=== PATIENT | female | born 1950 | race Two or more races ===

== ENCOUNTER → 2019-06-12 | Outpatient (CLI) | payer OTHER ==
[~2019-06-12] MED LIST: AMBIEN; BENTY; CELEXA; FISH; LISINO; PANTPAK; VIT B; WATER; ZOCOR; ZOLOFT
[2019-06-12 10:17] LABS: Urine Bacteria NONE SEEN /hpf (None Seen); Urine Blood Negative /uL (Negative); Urine Mucus FEW (None Seen); Urine Specific Gravity 1.026 (1.001-1.035); Urine WBC 2 /hpf (0 - 5)
[2019-06-12 10:19] LABS: Basophils # (auto) 0 10 ^3/uL (0-0.2); Basophils % (auto) 0.4 % (0.0-2.0); Eosinophils # (auto) 0.1 10 ^3/uL (0-0.8); Eosinophils % (auto) 2.7 % (0.0-7.0); Hematocrit 43.3 % (36.0-46.0); Hemoglobin 14.4 g/dL (12.2-16.2); Lymphocytes # (auto) 1.8 10 ^3/uL (0.4-5.4); Lymphocytes % (auto) 32.4 % (10.0-50.0); Mean Corpuscular Hemoglobin 29.8 pg (28.0-32.0); Mean Corpuscular Hgb Conc. 33.3 g/dL (32.0-36.0); Mean Corpuscular Volume 89.6 fL (80.0-100.0); Monocytes # (auto) 0.3 10 ^3/uL (0-1.3); Monocytes % (auto) 4.9 % (0.0-12.0); Neutrophils # (auto) 3.2 10 ^3/uL (1.6-8.6); Neutrophils % (auto) 59.6 % (37.0-80.0); Nucleated Red Blood Cells % 0.1 %; Platelet Count (auto) 247 10^3/uL (140-450); Red Blood Cells 4.83 10^6/uL (4.0-5.20); Red Cell Distribution Width 13.8 % (11.8-14.3); White Blood Cell 5.4 10^3/uL (4.4-10.8)
[2019-06-12 11:02] LABS: Albumin 3.8 g/dL (3.4-5.0); Bilirubin, Total 0.6 mg/dL (0.2-1.0); Calcium 8.7 mg/dL (8.5-10.1); Total Protein 7.5 g/dL (6.4-8.2)
== END | disposition home or self-care (01) ==
LOC: LAB 09:51
PROVIDERS: ATTEND Internal Medicine Nephrology
DX: I10 Essential (primary) hypertension (principal)
CPT/HCPCS: 36415; 80053; 80061; 81001; 83036; 84443; 85025

== ENCOUNTER → 2019-06-17 | Outpatient (CLI) | payer OTHER | END | disposition home or self-care (01) | LOC: LAB 08:04 | PROVIDERS: ATTEND Urology | DX: N39.0 Urinary tract infection, site not specified (principal) | CPT/HCPCS: 87086 ==

== ENCOUNTER 2019-10-09 07:48 | Day surgery (SDC) | payer OTHER ==
[2019-10-03 13:06] LABS: Basophils # (auto) 0 10 ^3/uL (0-0.2); Basophils % (auto) 0.6 % (0.0-2.0); Eosinophils # (auto) 0.1 10 ^3/uL (0-0.8); Eosinophils % (auto) 2.3 % (0.0-7.0); Hematocrit 42.2 % (36.0-46.0); Hemoglobin 14.3 g/dL (12.2-16.2); Lymphocytes # (auto) 1.8 10 ^3/uL (0.4-5.4); Lymphocytes % (auto) 30.4 % (10.0-50.0); Mean Corpuscular Hemoglobin 30.3 pg (28.0-32.0); Mean Corpuscular Hgb Conc. 33.8 g/dL (32.0-36.0); Mean Corpuscular Volume 89.6 fL (80.0-100.0); Monocytes # (auto) 0.4 10 ^3/uL (0-1.3); Monocytes % (auto) 6.5 % (0.0-12.0); Neutrophils # (auto) 3.5 10 ^3/uL (1.6-8.6); Neutrophils % (auto) 60.2 % (37.0-80.0); Platelet Count (auto) 227 10^3/uL (140-450); Red Blood Cells 4.71 10^6/uL (4.0-5.20); Red Cell Distribution Width 13.2 % (11.8-14.3); White Blood Cell 5.8 10^3/uL (4.4-10.8)
[2019-10-03 13:19] LABS: INR 0.99 (0.9-1.15); Partial Thromboplastin Time 28.7 sec (23.0-31.2)
[2019-10-03 13:22] LABS: Albumin 4.2 g/dL (3.4-5.0); Calcium 8.9 mg/dL (8.5-10.1); Potassium 3.5 mmol/L (3.5-5.1)
[2019-10-03 13:23] LABS: Urine Bacteria FEW /hpf (None Seen); Urine Blood Negative /uL (Negative); Urine Mucus FEW (None Seen); Urine WBC 8 /hpf (0 - 5)
[2019-10-03 13:26] LABS: BUN/Creatinine Ratio 22.4; Bilirubin, Total 0.8 mg/dL (0.2-1.0); Total Protein 7.8 g/dL (6.4-8.2)
[~2019-10-09] VITALS: Ht 152.4 cm; Wt 86.2 kg
[~2019-10-09 07:48] MED LIST changes: +ALPR0.5T7 PO; -AMBIEN; +ASPI-543 PO; +B-CO-15 PO; -BENTY; -CELEXA; +CITA-77 PO; -FISH; -LISINO; +OMEG1CAP59 PO; -PANTPAK; +SERT-377 PO; +SIMV-8 PO; +TRIA75TA55 PO; -VIT B; -WATER; -ZOCOR; -ZOLOFT
[2019-10-09] MEDS ORDERED: ceFAZolin 1GM VL ONE (08:07)
[2019-10-09] MEDS ORDERED: NEOMYCIN-BACITRACIN-POLYM 15GM TOP OINT TOP ONE (08:07)
[2019-10-09] MEDS ORDERED: LIDOCAINE W/ EPINEPHRINE 1 % INJ 30ML ONE (08:07)
[2019-10-09] MEDS ORDERED: CONJ ESTROGENS 0.625MG/GM VAG CRM 30GM PV ONE (08:07)
[2019-10-09] MEDS ORDERED: CIPROFLOXACIN 400MG/200ML 200 ML IV ONE (08:12)
[2019-10-09] MEDS ORDERED: SUCCINYLCHOLINE CHLORIDE 20 MG/ML 10ML VIAL IV ONE (08:38)
[2019-10-09] MEDS ORDERED: LIDOCAINE 1% (LOCAL ANESTH.) PF 5ml SDV ONE (08:38)
[2019-10-09] MEDS ORDERED: MIDAZOLAM HCL 1MG/1ML-2 ML VIAL ONE (08:43)
[2019-10-09] MEDS ORDERED: ETOMIDATE (2MG/ML) 20ML VIAL IV ONE (08:43)
[2019-10-09] MEDS ORDERED: METOCLOPRAMIDE HCL 5MG/ml INJ 2ml VIAL ONE (08:45)
[2019-10-09] MEDS ORDERED: ROCURONIUM 10MG/ML 10ML VIAL IV ONE (08:45)
[2019-10-09] MEDS ORDERED: fentaNYL CITRATE 100 MCG/2 ML VL ONE (08:57)
[2019-10-09] MEDS ORDERED: HYDROmorphone HCL 2 MG/ML VL IV PRN ×2 (09:15)
[2019-10-09] MEDS ORDERED: NALOXONE HCL 0.4 MG/ML VIAL IV PRN (09:15)
[2019-10-09] MEDS ORDERED: ONDANSETRON HCL 4 MG/2 ML VIAL IV PRN (09:15)
[2019-10-09] MEDS ORDERED: STERILE WATER 10 ML ONE (09:30)
[2019-10-09] MEDS ORDERED: ePHEDrine SULFATE 50 MG/ML AMP ONE (09:30)
[2019-10-09] MEDS ORDERED: KETOROLAC TROMETH 30 MG/ML 1ML VIAL ONE (09:50)
[2019-10-09] MEDS ORDERED: GLYCOPYRROLATE 0.2 MG/ML 1ML VIAL ONE (09:52)
[2019-10-09] MEDS ORDERED: NEOSTIGMINE 1 MG/ML INJ (10mg/10ML VIAL) ONE (09:52)
[2019-10-09 11:06] VITALS: BP 113/66
== END 2019-10-09 11:12 | disposition home or self-care (01) ==
LOC: SUR 07:48
PROVIDERS: ATTEND Urology
DX: N39.46 Mixed incontinence (principal); I10 Essential (primary) hypertension; E66.01 Morbid (severe) obesity due to excess calories; G47.33 Obstructive sleep apnea (adult) (pediatric); F41.9 Anxiety disorder, unspecified; F32.9 Major depressive disorder, single episode, unspecified; M19.90 Unspecified osteoarthritis, unspecified site; H26.9 Unspecified cataract; Z20.828 Contact with and (suspected) exposure to other viral communicable diseases; Z88.0 Allergy status to penicillin; Z88.5 Allergy status to narcotic agent; Z68.34 Body mass index [BMI] 34.0-34.9, adult; Z98.890 Other specified postprocedural states; Z79.899 Other long term (current) drug therapy
CPT/HCPCS: 36415; 57288; 80053; 81001; 85025; 85610; 85730; 88302; C1763; J0330; J0690; J0744; J1885; J2001; J2250; J2765; J3010; U0003

== ENCOUNTER → 2020-01-15 | Outpatient (CLI) | payer OTHER | END | disposition home or self-care (01) | LOC: LAB 10:05 | PROVIDERS: ATTEND Nurse Practitioner Family | DX: U07.1 COVID-19 (principal) | CPT/HCPCS: C9803; U0003 ==

== ENCOUNTER → 2020-06-11 | Outpatient (CLI) | payer OTHER | END | disposition home or self-care (01) | LOC: XYW 07:43 | PROVIDERS: ATTEND Internal Medicine | DX: Z01.810 Encounter for preprocedural cardiovascular examination (principal); I07.1 Rheumatic tricuspid insufficiency | CPT/HCPCS: 93306 ==

== ENCOUNTER 2020-07-16 07:04 | Day surgery (SDC) | payer OTHER ==
[2020-07-14 10:46] LABS: Basophils # (auto) 0 10 ^3/uL (0-0.2); Basophils % (auto) 0.6 % (0.0-2.0); Eosinophils # (auto) 0.3 10 ^3/uL (0-0.8); Hematocrit 40.2 % (36.0-46.0); Hemoglobin 14.1 g/dL (12.2-16.2); Lymphocytes # (auto) 1.9 10 ^3/uL (0.4-5.4); Mean Corpuscular Hgb Conc. 35.1 g/dL (32.0-36.0); Mean Corpuscular Volume 88.3 fL (80.0-100.0); Monocytes # (auto) 0.4 10 ^3/uL (0-1.3); Monocytes % (auto) 5.3 % (0.0-12.0); Neutrophils # (auto) 4.5 10 ^3/uL (1.6-8.6); Neutrophils % (auto) 63.1 % (37.0-80.0); Platelet Count (auto) 214 10^3/uL (140-450); Red Blood Cells 4.55 10^6/uL (4.0-5.20); Red Cell Distribution Width 13.3 % (11.8-14.3); White Blood Cell 7.1 10^3/uL (4.4-10.8)
[2020-07-14 11:11] LABS: Albumin 4.1 g/dL (3.4-5.0); Calcium 8.9 mg/dL (8.5-10.1); INR 0.99 (0.9-1.15); Partial Thromboplastin Time 28.2 sec (23.0-31.2); Potassium 4.1 mmol/L (3.5-5.1)
[2020-07-14 11:15] LABS: BUN/Creatinine Ratio 33.3; Bilirubin, Total 0.7 mg/dL (0.2-1.0); Total Protein 7.7 g/dL (6.4-8.2)
[~2020-07-16] VITALS: Ht 152.4 cm; Wt 89.4 kg
[2020-07-16] MEDS ORDERED: fentaNYL CITRATE 100 MCG/2 ML VL ONE (09:14)
[2020-07-16] MEDS ORDERED: VERAPAMIL 2.5MG/ML INJ 2ML VIAL IV ONE (09:14)
[2020-07-16] MEDS ORDERED: MIDAZOLAM HCL 1MG/1ML-2 ML VIAL ONE (09:14)
[2020-07-16] MEDS ORDERED: SODIUM CHL 0.9% 0 ML ONE (09:14)
[2020-07-16] MEDS ORDERED: HEPARIN SODIUM (PORCINE) 5000 UNITS/ML 1ML VIAL ONE (09:14)
[2020-07-16] MEDS ORDERED: ANGIOMAX 250 MG VIAL IV ONE (09:14)
[2020-07-16] MEDS ORDERED: LIDOCAINE 2%HCL (LOCAL ANESTH.) INJ 20ML MDV ONE (09:25)
[2020-07-16] MEDS ORDERED: IODIXANOL 320MG/ML 100ML BTL IV ONE (09:25)
== END 2020-07-16 12:55 | disposition home or self-care (01) ==
LOC: CATH 07:04
PROVIDERS: ATTEND Internal Medicine
DX: I25.10 Atherosclerotic heart disease of native coronary artery without angina pectoris (principal); I10 Essential (primary) hypertension; E78.5 Hyperlipidemia, unspecified; F32.9 Major depressive disorder, single episode, unspecified; F41.9 Anxiety disorder, unspecified; Z20.822 Contact with and (suspected) exposure to COVID-19; Z98.890 Other specified postprocedural states; Z79.899 Other long term (current) drug therapy; Z87.891 Personal history of nicotine dependence; Z79.82 Long term (current) use of aspirin; Z88.0 Allergy status to penicillin; Z88.5 Allergy status to narcotic agent; Z68.38 Body mass index [BMI] 38.0-38.9, adult; Z90.721 Acquired absence of ovaries, unilateral
CPT/HCPCS: 36415; 80053; 85025; 85610; 85730; 93460; C1751; C1760; C1769; C1894; J1644; J2250; J3010; J7030; Q9967; U0003; 99152; 99153

== ENCOUNTER 2020-08-02 06:21 | Inpatient (IN) | payer OTHER ==
[2020-07-29 15:55] LABS: Basophils # (auto) 0.1 10 ^3/uL (0-0.2); Basophils % (auto) 0.8 % (0.0-2.0); Eosinophils # (auto) 0.2 10 ^3/uL (0-0.8); Eosinophils % (auto) 2.2 % (0.0-7.0); Hematocrit 41.6 % (36.0-46.0); Hemoglobin 14.5 g/dL (12.2-16.2); Lymphocytes # (auto) 2.5 10 ^3/uL (0.4-5.4); Lymphocytes % (auto) 33.3 % (10.0-50.0); Mean Corpuscular Hemoglobin 30.9 pg (28.0-32.0); Mean Corpuscular Hgb Conc. 34.9 g/dL (32.0-36.0); Mean Corpuscular Volume 88.3 fL (80.0-100.0); Monocytes # (auto) 0.4 10 ^3/uL (0-1.3); Monocytes % (auto) 5.4 % (0.0-12.0); Neutrophils # (auto) 4.4 10 ^3/uL (1.6-8.6); Neutrophils % (auto) 58.3 % (37.0-80.0); Red Blood Cells 4.71 10^6/uL (4.0-5.20); Red Cell Distribution Width 13.4 % (11.8-14.3); White Blood Cell 7.6 10^3/uL (4.4-10.8)
[2020-07-29 16:02] LABS: Urine Bacteria NONE SEEN /hpf (None Seen); Urine Blood Negative /uL (Negative); Urine Specific Gravity 1.004 (1.001-1.035); Urine WBC 1 /hpf (0 - 5)
[2020-07-29 16:33] LABS: Albumin 4.2 g/dL (3.4-5.0); Potassium 3.5 mmol/L (3.5-5.1)
[2020-07-29 16:36] LABS: BUN/Creatinine Ratio 23.1; Bilirubin, Total 0.5 mg/dL (0.2-1.0); Total Protein 7.7 g/dL (6.4-8.2)
[~2020-08-02] VITALS: Ht 152.4 cm; Wt 98.0 kg
[2020-08-02] MEDS ORDERED: TRANEXAMIC ACID 20 ML ONE (06:58)
[2020-08-02] MEDS ORDERED: BUPIVACAINE 0.25% INJ 50ML VIAL ONE (06:58)
[2020-08-02] MEDS ORDERED: VANCOMYCIN HCL 1000 MG VL ONE (06:59)
[2020-08-02] MEDS ORDERED: KETOROLAC TROMETH 30 MG/ML 1ML VIAL ONE (06:59)
[2020-08-02] MEDS ORDERED: TETRACAINE 1% INJ 2 ML VIAL IJ ONE (07:00)
[2020-08-02] MEDS ORDERED: ROPIVACAINE 0.5% (5MG/ML) 20ML AMPULE IJ ONE (07:00)
[2020-08-02] MEDS ORDERED: fentaNYL CITRATE 100 MCG/2 ML VL ONE (07:08)
[2020-08-02] MEDS ORDERED: MORPHINE SULF PF 2 MG/2 ML SYRG ONE (07:08)
[2020-08-02] MEDS ORDERED: MIDAZOLAM HCL 2MG/2ML 2ml VIAL (1mg/ml) ONE (07:08)
[2020-08-02] MEDS ORDERED: KETAMINE HCL 10 ML ONE (07:08)
[2020-08-02] MEDS ORDERED: PROPOFOL 10 MG/ML 20 ML IV ONE (07:09)
[2020-08-02] MEDS ORDERED: LIDOCAINE 2% (LOCAL ANESTH.) PF 5ml SDV ONE (07:09)
[2020-08-02] MEDS ORDERED: ONDANSETRON HCL 4 MG/2 ML VIAL ONE (07:09)
[2020-08-02] MEDS ORDERED: DexAMETHasone SOD PHOS 10MG/1ML VIAL INJ ONE (07:09)
[2020-08-02] MEDS ORDERED: FAMOTIDINE (10MG/ML) 2ML VL IV ONE (07:14)
[2020-08-02] MEDS ORDERED: ACETAMINOPHEN IV 100 ML IV ONE (07:27)
[2020-08-02] MEDS ORDERED: CELECOXIB 100 MG CAP ONE (07:27)
[2020-08-02] MEDS ORDERED: PREGABALIN CAPSULE 75 MG CAP ONE (07:27)
[2020-08-02] MEDS ORDERED: CELECOXIB 100 MG CAP PO ONE (09:15)
[2020-08-02] MEDS ORDERED: PREGABALIN CAPSULE 75 MG CAP PO ONE (09:15)
[2020-08-02] MEDS ORDERED: ACETAMINOPHEN IV 1000 MG/100ML (10MG/ML) IV ONE (09:15)
[2020-08-02] MEDS ORDERED: HYDROmorphone HCL 2 MG/ML VL IV PRN (10:15)
[2020-08-02] MEDS ORDERED: diphenhdrAMINE HCL 25 MG CAP PO PRN (10:15)
[2020-08-02] MEDS ORDERED: HYDROcodone-ACET 5/325MG TAB PO PRN (10:15)
[2020-08-02] MEDS ORDERED: NITROGLYCERIN 0.4 MG SL TAB SL PRN (10:15)
[2020-08-02] MEDS ORDERED: ALPRAZolam 0.5 MG TAB PO PRN (10:15)
[2020-08-02] MEDS ORDERED: MORPHINE SULFATE INJECTION 2 MG/ML SYRG IV PRN (10:15)
[2020-08-02] MEDS ORDERED: HYDROmorphone HCL 2 MG/ML VL ONE (10:30)
[2020-08-02] MEDS ORDERED: ONDANSETRON HCL 4 MG/2 ML VIAL IV PRN (10:30)
[2020-08-02] MEDS: HYDROmorphone HCL 2 MG/ML VL IV PRN ×6 (10:33→21:17)
[2020-08-02] MEDS ORDERED: AZTREONAM 1GM INJ 1 GM in D5W 5% 50 ML IV SCH (14:00)
[2020-08-02] MEDS: SODIUM CHLOR 0.9% PF (SALINE LOCK) 10ML VIAL/SYR IV SCH ×2 (14:16→21:45)
[2020-08-02 16:00] VITALS: BP 146/72
[2020-08-02] MEDS: LACTATED RINGER'S 1,000 ML IV SCH ×2 (16:00→20:15)
[2020-08-02] MEDS: KETOROLAC TROMETH 30 MG/ML 1ML VIAL IV PRN (16:26)
[2020-08-02 20:00] VITALS: BP 125/73
[2020-08-02] MEDS: VANCOMYCIN 1GM/250ML 250 ML IV SCH (21:45)
[2020-08-02] MEDS: OMEGA PO SCH (21:46)
[2020-08-02] MEDS: FATTY ACIDS PO SCH (21:46)
[2020-08-02] MEDS: DOCUSATE SOD 100 MG CAP PO SCH (21:46)
[2020-08-02 22:00] VITALS: BP 125/73
[2020-08-03] MEDS: KETOROLAC TROMETH 30 MG/ML 1ML VIAL IV PRN ×2 (00:40→09:04)
[2020-08-03 05:00] VITALS: BP 97/60
[2020-08-03] MEDS: SODIUM CHLOR 0.9% PF (SALINE LOCK) 10ML VIAL/SYR IV SCH ×3 (05:05→21:15)
[2020-08-03] MEDS: LACTATED RINGER'S 1,000 ML IV SCH ×2 (05:05→16:15)
[2020-08-03 05:23] LABS: Hematocrit 31.3 % (36.0-46.0); Hemoglobin 11.1 g/dL (12.2-16.2)
[2020-08-03 05:44] LABS: Albumin 3.2 g/dL (3.4-5.0); BUN/Creatinine Ratio 26.1; Bilirubin, Total 0.5 mg/dL (0.2-1.0); Calcium 7.7 mg/dL (8.5-10.1); Total Protein 6.1 g/dL (6.4-8.2)
[2020-08-03] MEDS: HYDROmorphone HCL 2 MG/ML VL IV PRN ×3 (07:06→22:32)
[2020-08-03 09:00] VITALS: BP 91/51
[2020-08-03] MEDS: B-COMPLEX W/ C & FOLIC ACID(NEPHROVITE TAB) PO SCH (09:05)
[2020-08-03] MEDS: DOCUSATE SOD 100 MG CAP PO SCH ×2 (09:06→21:14)
[2020-08-03] MEDS: ATORVASTATIN 20 MG TAB PO SCH (09:06)
[2020-08-03] MEDS: VANCOMYCIN 1GM/250ML 250 ML IV SCH (09:08)
[2020-08-03] MEDS ORDERED: TRIAMTERENE/HCTZ 75/50MG TABLET PO SCH (10:00)
[2020-08-03] MEDS: OMEGA PO SCH ×2 (10:00→21:15)
[2020-08-03] MEDS ORDERED: CITALOPRAM HYDROBR 20 MG TAB PO SCH (10:00)
[2020-08-03] MEDS: SERTRALINE HCL 50 MG TAB PO SCH (10:00)
[2020-08-03] MEDS: FATTY ACIDS PO SCH ×2 (10:00→21:15)
[2020-08-03] MEDS: ACETAMINOPHEN 325 MG TAB PO PRN (11:15)
[2020-08-03] MEDS: ONDANSETRON HCL 4 MG/2 ML VIAL IV PRN ×2 (12:44→19:38)
[2020-08-03 13:00] VITALS: BP 105/59
[2020-08-03 17:00] VITALS: BP 122/64
[2020-08-03] MEDS: HYDROcodone-ACET 10/325MG TAB PO PRN (19:39)
[2020-08-03 20:05] VITALS: BP 142/68
[2020-08-03 22:00] VITALS: BP 142/68
[2020-08-04] MEDS: LACTATED RINGER'S 1,000 ML IV SCH ×3 (01:37→21:22)
[2020-08-04 05:00] VITALS: BP 116/57
[2020-08-04 05:06] LABS: Basophils # (auto) 0 10 ^3/uL (0-0.2); Basophils % (auto) 0.3 % (0.0-2.0); Eosinophils # (auto) 0.1 10 ^3/uL (0-0.8); Eosinophils % (auto) 0.9 % (0.0-7.0); Hematocrit 32.4 % (36.0-46.0); Hemoglobin 11.6 g/dL (12.2-16.2); Lymphocytes # (auto) 0.7 10 ^3/uL (0.4-5.4); Lymphocytes % (auto) 9.1 % (10.0-50.0); Mean Corpuscular Hemoglobin 31.5 pg (28.0-32.0); Mean Corpuscular Hgb Conc. 35.7 g/dL (32.0-36.0); Mean Corpuscular Volume 88.3 fL (80.0-100.0); Monocytes # (auto) 0.4 10 ^3/uL (0-1.3); Monocytes % (auto) 5.6 % (0.0-12.0); Neutrophils # (auto) 6.2 10 ^3/uL (1.6-8.6); Neutrophils % (auto) 84.1 % (37.0-80.0); Red Blood Cells 3.67 10^6/uL (4.0-5.20); Red Cell Distribution Width 13.6 % (11.8-14.3); White Blood Cell 7.4 10^3/uL (4.4-10.8)
[2020-08-04 05:25] LABS: Calcium 7.8 mg/dL (8.5-10.1); Potassium 3.6 mmol/L (3.5-5.1)
[2020-08-04] MEDS: SODIUM CHLOR 0.9% PF (SALINE LOCK) 10ML VIAL/SYR IV SCH ×3 (05:45→21:22)
[2020-08-04] MEDS: HYDROcodone-ACET 10/325MG TAB PO PRN ×2 (08:59→21:18)
[2020-08-04 09:52] VITALS: BP 123/67
[2020-08-04] MEDS: OMEGA PO SCH ×2 (10:00→21:22)
[2020-08-04] MEDS: FATTY ACIDS PO SCH ×2 (10:00→21:22)
[2020-08-04] MEDS ORDERED: PANTOPRAZOLE 40 MG/10 ML VIAL INJ IV ONE (11:00)
[2020-08-04] MEDS ORDERED: PROMETHAZINE HCL 25 MG/ML 1ML IV PRN (11:00)
[2020-08-04] MEDS: SERTRALINE HCL 50 MG TAB PO SCH (11:13)
[2020-08-04] MEDS: ATORVASTATIN 20 MG TAB PO SCH (11:13)
[2020-08-04] MEDS: B-COMPLEX W/ C & FOLIC ACID(NEPHROVITE TAB) PO SCH (11:14)
[2020-08-04] MEDS: ENOXAPARIN SOD 40 MG/0.4 ML SYRINGE SC SCH (11:15)
[2020-08-04] MEDS: DOCUSATE SOD 100 MG CAP PO SCH ×2 (11:15→21:22)
[2020-08-04 13:00] VITALS: BP 102/54
[2020-08-04] MEDS: ACETAMINOPHEN 325 MG TAB PO PRN (16:23)
[2020-08-04 17:03] VITALS: BP 113/66
[2020-08-04 20:05] VITALS: BP 115/59
[2020-08-04 22:00] VITALS: BP 115/59
[2020-08-05 04:54] LABS: Hematocrit 31.1 % (36.0-46.0)
[2020-08-05] MEDS: HYDROcodone-ACET 10/325MG TAB PO PRN ×3 (05:22→22:50)
[2020-08-05] MEDS: SODIUM CHLOR 0.9% PF (SALINE LOCK) 10ML VIAL/SYR IV SCH ×3 (05:25→21:03)
[2020-08-05 09:00] VITALS: BP 109/54
[2020-08-05] MEDS: OMEGA PO SCH ×2 (10:00→21:04)
[2020-08-05] MEDS: FATTY ACIDS PO SCH ×2 (10:00→21:04)
[2020-08-05] MEDS ORDERED: LACTULOSE 20Gm/30ML SOLN PO ONE (10:15)
[2020-08-05] MEDS: PANTOPRAZOLE 40 MG/10 ML VIAL INJ IV SCH (12:04)
[2020-08-05] MEDS: ATORVASTATIN 20 MG TAB PO SCH (12:04)
[2020-08-05] MEDS: DOCUSATE SOD 100 MG CAP PO SCH ×2 (12:05→21:04)
[2020-08-05] MEDS: SERTRALINE HCL 50 MG TAB PO SCH (12:05)
[2020-08-05] MEDS: B-COMPLEX W/ C & FOLIC ACID(NEPHROVITE TAB) PO SCH (12:05)
[2020-08-05] MEDS: ENOXAPARIN SOD 40 MG/0.4 ML SYRINGE SC SCH (12:05)
[2020-08-05 13:00] VITALS: BP 117/56
[2020-08-05 17:00] VITALS: BP 118/68
[2020-08-05 20:00] VITALS: BP 131/69
[2020-08-05] MEDS: LACTULOSE 20Gm/30ML SOLN PO SCH (21:03)
[2020-08-05 22:02] VITALS: BP 131/69
[2020-08-06 05:00] VITALS: BP 146/76
[2020-08-06] MEDS: SODIUM CHLOR 0.9% PF (SALINE LOCK) 10ML VIAL/SYR IV SCH ×2 (05:22→13:56)
[2020-08-06 08:00] VITALS: BP 137/70
[2020-08-06] MEDS: HYDROcodone-ACET 10/325MG TAB PO PRN (08:15)
[2020-08-06] MEDS: PANTOPRAZOLE 40 MG/10 ML VIAL INJ IV SCH (09:30)
[2020-08-06] MEDS: DOCUSATE SOD 100 MG CAP PO SCH (09:31)
[2020-08-06] MEDS: ATORVASTATIN 20 MG TAB PO SCH (09:31)
[2020-08-06] MEDS: SERTRALINE HCL 50 MG TAB PO SCH (09:32)
[2020-08-06] MEDS: B-COMPLEX W/ C & FOLIC ACID(NEPHROVITE TAB) PO SCH (09:33)
[2020-08-06] MEDS: ENOXAPARIN SOD 40 MG/0.4 ML SYRINGE SC SCH (09:33)
[2020-08-06] MEDS: LACTULOSE 20Gm/30ML SOLN PO SCH (09:35)
[2020-08-06] MEDS: FATTY ACIDS PO SCH (09:35)
[2020-08-06] MEDS: OMEGA PO SCH (09:35)
[2020-08-06 11:35] VITALS: BP 96/53
[2020-08-06 12:00] VITALS: BP 152/69
== END 2020-08-06 17:30 | disposition home health service (06) | DRG 467 ==
LOC: SUR 06:21 → TELE 10:04 → TELE-CENTR 13:44
PROVIDERS: ADMIT Orthopaedic Surgery Adult Reconstructive Orthopaedic Surgery; ATTEND Internal Medicine
PROC: 0SPC0JZ Removal of Synthetic Substitute from Right Knee Joint, Open Approach (ICD-10-PCS; 2020-08-02)
PROC: 0SRC0J9 Replacement of Right Knee Joint with Synthetic Substitute, Cemented, Open Approach (ICD-10-PCS; 2020-08-02)
PROC: 3E0T3BZ Introduction of Anesthetic Agent into Peripheral Nerves and Plexi, Percutaneous Approach (ICD-10-PCS; principal; 2020-08-02 07:32)
DX: T84.032A Mechanical loosening of internal right knee prosthetic joint, initial encounter (principal); Z68.41 Body mass index [BMI] 40.0-44.9, adult; Z20.822 Contact with and (suspected) exposure to COVID-19; F32.9 Major depressive disorder, single episode, unspecified; F41.9 Anxiety disorder, unspecified; M19.90 Unspecified osteoarthritis, unspecified site; E66.01 Morbid (severe) obesity due to excess calories; Z96.652 Presence of left artificial knee joint; Y83.8 Other surgical procedures as the cause of abnormal reaction of the patient, or of later complication, without mention of misadventure at the time of the procedure; M65.861 Other synovitis and tenosynovitis, right lower leg; Y79.2 Prosthetic and other implants, materials and accessory orthopedic devices associated with adverse incidents; E78.5 Hyperlipidemia, unspecified; I10 Essential (primary) hypertension; Z88.5 Allergy status to narcotic agent; Z79.899 Other long term (current) drug therapy; Z88.0 Allergy status to penicillin; Z88.6 Allergy status to analgesic agent; Z90.721 Acquired absence of ovaries, unilateral; Y92.89 Other specified places as the place of occurrence of the external cause
CPT/HCPCS: 36415; 73562; 80048; 80053; 81001; 85014; 85018; 85025; 86850; 86900; 86901; 97116; C9113; G0378; J0131; J1100; J1885; J2001; J2250; J2405; J2704; J3490; J7060

== ENCOUNTER 2021-01-31 07:41 | Inpatient (IN) | payer OTHER ==
[2021-01-27 09:25] LABS: Basophils # (auto) 0 10 ^3/uL (0-0.2); Basophils % (auto) 0.7 % (0.0-2.0); Eosinophils # (auto) 0.2 10 ^3/uL (0-0.8); Eosinophils % (auto) 4.5 % (0.0-7.0); Hematocrit 42.7 % (36.0-46.0); Hemoglobin 14.3 g/dL (12.2-16.2); Lymphocytes # (auto) 1.7 10 ^3/uL (0.4-5.4); Lymphocytes % (auto) 32.8 % (10.0-50.0); Mean Corpuscular Hgb Conc. 33.5 g/dL (32.0-36.0); Mean Corpuscular Volume 89.5 fL (80.0-100.0); Monocytes # (auto) 0.3 10 ^3/uL (0-1.3); Monocytes % (auto) 6.2 % (0.0-12.0); Neutrophils # (auto) 2.8 10 ^3/uL (1.6-8.6); Neutrophils % (auto) 55.8 % (37.0-80.0); Nucleated Red Blood Cells % 0.1 %; Red Blood Cells 4.78 10^6/uL (4.0-5.20); Red Cell Distribution Width 13.8 % (11.8-14.3); White Blood Cell 5.1 10^3/uL (4.4-10.8)
[2021-01-27 09:47] LABS: Urine Bacteria NONE SEEN /hpf (None Seen); Urine Blood Negative /uL (Negative); Urine Specific Gravity 1.014 (1.001-1.035); Urine WBC 1 /hpf (0 - 5)
[2021-01-27 09:59] LABS: Albumin 4.3 g/dL (3.4-5.0); Calcium 8.9 mg/dL (8.5-10.1); Potassium 3.9 mmol/L (3.5-5.1)
[2021-01-27 10:02] LABS: BUN/Creatinine Ratio 19.6; Bilirubin, Total 0.7 mg/dL (0.2-1.0); Total Protein 7.6 g/dL (6.4-8.2)
[~2021-01-31] VITALS: Ht 152.4 cm; Wt 93.2 kg
[~2021-01-31 07:41] MED LIST changes: +HYDR12.56 PO; -TRIA75TA55 PO
[2021-01-31] MEDS ORDERED: VANCOMYCIN HCL 1000 MG VL ONE ×2 (07:54→08:32)
[2021-01-31] MEDS ORDERED: BUPIVACAINE W/ EPINEPH 0.5% MPF 30ML VIAL IJ ONE (08:30)
[2021-01-31] MEDS ORDERED: TRANEXAMIC ACID 20 ML ONE (08:30)
[2021-01-31] MEDS ORDERED: KETOROLAC TROMETH 30 MG/ML 1ML VIAL ONE (08:32)
[2021-01-31] MEDS ORDERED: TETRACAINE 1% INJ 2 ML VIAL IJ ONE (08:40)
[2021-01-31] MEDS ORDERED: MEPERIDINE HCL (25 MG/ML) 1ML VIAL ONE (08:50)
[2021-01-31] MEDS ORDERED: fentaNYL CITRATE 100 MCG/2 ML VL ONE (08:50)
[2021-01-31] MEDS ORDERED: MIDAZOLAM HCL 2MG/2ML 2ml VIAL (1mg/ml) ONE ×2 (08:50→08:52)
[2021-01-31] MEDS ORDERED: DexAMETHasone SOD PHOS 10MG/1ML VIAL INJ ONE (08:52)
[2021-01-31] MEDS ORDERED: PROPOFOL 10 MG/ML 20 ML IV ONE (08:52)
[2021-01-31] MEDS ORDERED: ePHEDrine SULFATE 50 MG/ML AMP IV PRN (09:30)
[2021-01-31] MEDS ORDERED: HYDROmorphone HCL 2 MG/ML VL IV PRN ×2 (09:30→11:45)
[2021-01-31] MEDS ORDERED: LABETALOL HCL 5 MG/ML 4ML SYRINGE IV PRN (09:30)
[2021-01-31] MEDS ORDERED: MIDAZOLAM HCL 2MG/2ML 2ml VIAL (1mg/ml) IV PRN (09:30)
[2021-01-31] MEDS ORDERED: ONDANSETRON HCL 4 MG/2 ML VIAL IV PRN ×2 (09:30→11:45)
[2021-01-31] MEDS: LACTATED RINGER'S 1,000 ML IV SCH (11:45)
[2021-01-31] MEDS ORDERED: ALPRAZolam 0.5 MG TAB PO PRN (11:45)
[2021-01-31] MEDS ORDERED: NITROGLYCERIN 0.4 MG SL TAB SL PRN (11:45)
[2021-01-31] MEDS ORDERED: MORPHINE SULFATE INJECTION 2 MG/ML SYRG IV PRN (11:45)
[2021-01-31 12:26] VITALS: BP 107/56
[2021-01-31 13:00] VITALS: BP 107/56
[2021-01-31] MEDS: KETOROLAC TROMETH 30 MG/ML 1ML VIAL IV SCH ×2 (14:23→21:12)
[2021-01-31 17:00] VITALS: BP 108/58
[2021-01-31] MEDS: ACCU-CHEK COMFORT CURVE STRIP VI SCH ×2 (17:43→21:09)
[2021-01-31] MEDS: OXYCODONE W/ ACETAMINOPHEN 5/325MG TABLET PO PRN (19:56)
[2021-01-31 20:00] VITALS: BP 118/59
[2021-01-31] MEDS: DOCUSATE SOD 100 MG CAP PO SCH (21:04)
[2021-01-31] MEDS: FATTY ACIDS PO SCH (21:04)
[2021-01-31] MEDS: ATORVASTATIN 20 MG TAB PO SCH (21:04)
[2021-01-31] MEDS: OMEGA PO SCH (21:04)
[2021-01-31] MEDS: VANCOMYCIN 1GM/250ML 250 ML IV SCH (22:32)
[2021-02-01 04:19] VITALS: BP 116/63
[2021-02-01] MEDS: OXYCODONE W/ ACETAMINOPHEN 5/325MG TABLET PO PRN ×4 (04:23→20:01)
[2021-02-01] MEDS: KETOROLAC TROMETH 30 MG/ML 1ML VIAL IV SCH (05:45)
[2021-02-01] MEDS: ACCU-CHEK COMFORT CURVE STRIP VI SCH ×2 (05:46→11:41)
[2021-02-01 07:45] LABS: Basophils # (auto) 0 10 ^3/uL (0-0.2); Basophils % (auto) 0.1 % (0.0-2.0); Eosinophils # (auto) 0 10 ^3/uL (0-0.8); Eosinophils % (auto) 0.2 % (0.0-7.0); Hematocrit 33.8 % (36.0-46.0); Hemoglobin 11.7 g/dL (12.2-16.2); Lymphocytes # (auto) 0.9 10 ^3/uL (0.4-5.4); Lymphocytes % (auto) 8.9 % (10.0-50.0); Mean Corpuscular Hgb Conc. 34.8 g/dL (32.0-36.0); Mean Corpuscular Volume 89.1 fL (80.0-100.0); Monocytes # (auto) 0.4 10 ^3/uL (0-1.3); Neutrophils # (auto) 9.2 10 ^3/uL (1.6-8.6); Neutrophils % (auto) 86.8 % (37.0-80.0); Red Blood Cells 3.79 10^6/uL (4.0-5.20); Red Cell Distribution Width 13.8 % (11.8-14.3); White Blood Cell 10.6 10^3/uL (4.4-10.8)
[2021-02-01] MEDS: LACTATED RINGER'S 1,000 ML IV SCH ×3 (07:45→18:04)
[2021-02-01 08:00] VITALS: BP 96/50
[2021-02-01 08:02] LABS: Potassium 3.6 mmol/L (3.5-5.1)
[2021-02-01 08:09] LABS: Albumin 3.4 g/dL (3.4-5.0); BUN/Creatinine Ratio 26.2; Bilirubin, Total 0.5 mg/dL (0.2-1.0); Calcium 8.5 mg/dL (8.5-10.1); Total Protein 6.1 g/dL (6.4-8.2)
[2021-02-01 08:15] VITALS: BP 96/50
[2021-02-01] MEDS: DOCUSATE SOD 100 MG CAP PO SCH ×2 (09:20→20:00)
[2021-02-01] MEDS: SERTRALINE HCL 50 MG TAB PO SCH (09:21)
[2021-02-01] MEDS: ENOXAPARIN SOD 40 MG/0.4 ML SYRINGE SC SCH (09:21)
[2021-02-01] MEDS: VANCOMYCIN 1GM/250ML 250 ML IV SCH (09:35)
[2021-02-01] MEDS: FATTY ACIDS PO SCH ×2 (10:00→21:36)
[2021-02-01] MEDS: OMEGA PO SCH ×2 (10:00→21:36)
[2021-02-01] MEDS ORDERED: CITALOPRAM HYDROBR 20 MG TAB PO SCH (10:00)
[2021-02-01] MEDS ORDERED: HCTZ 25 MG TAB PO SCH (10:00)
[2021-02-01] MEDS ORDERED: PANTOPRAZOLE 40 MG/10 ML VIAL INJ IV SCH (10:00)
[2021-02-01] MEDS: B COMPLEX VITAMINS PO SCH (10:00)
[2021-02-01] MEDS ORDERED: HYDROmorphone HCL 2 MG/ML VL IV PRN (12:00)
[2021-02-01 12:05] VITALS: BP 102/49
[2021-02-01 14:10] VITALS: BP 117/58
[2021-02-01] MEDS: ATORVASTATIN 20 MG TAB PO SCH (20:00)
[2021-02-01 22:00] VITALS: BP 117/53
[2021-02-01] MEDS ORDERED: diphenhdrAMINE HCL 25 MG CAP PO ONE (23:00)
[2021-02-02 05:00] VITALS: BP 132/74
[2021-02-02 06:22] LABS: Basophils # (auto) 0 10 ^3/uL (0-0.2); Basophils % (auto) 0.4 % (0.0-2.0); Eosinophils # (auto) 0 10 ^3/uL (0-0.8); Eosinophils % (auto) 0.6 % (0.0-7.0); Hematocrit 36.1 % (36.0-46.0); Hemoglobin 12.2 g/dL (12.2-16.2); Lymphocytes # (auto) 0.8 10 ^3/uL (0.4-5.4); Lymphocytes % (auto) 14.2 % (10.0-50.0); Mean Corpuscular Hemoglobin 30.4 pg (28.0-32.0); Mean Corpuscular Hgb Conc. 33.9 g/dL (32.0-36.0); Mean Corpuscular Volume 89.8 fL (80.0-100.0); Monocytes # (auto) 0.4 10 ^3/uL (0-1.3); Monocytes % (auto) 7.3 % (0.0-12.0); Neutrophils # (auto) 4.4 10 ^3/uL (1.6-8.6); Neutrophils % (auto) 77.5 % (37.0-80.0); Red Blood Cells 4.02 10^6/uL (4.0-5.20); Red Cell Distribution Width 13.8 % (11.8-14.3); White Blood Cell 5.6 10^3/uL (4.4-10.8)
[2021-02-02 08:00] VITALS: BP 124/67
[2021-02-02] MEDS: OXYCODONE W/ ACETAMINOPHEN 5/325MG TABLET PO PRN ×2 (08:45→21:26)
[2021-02-02 09:00] VITALS: BP 124/60
[2021-02-02] MEDS: B COMPLEX VITAMINS PO SCH (10:00)
[2021-02-02] MEDS: OMEGA PO SCH ×2 (10:00→22:00)
[2021-02-02] MEDS: FATTY ACIDS PO SCH ×2 (10:00→22:00)
[2021-02-02] MEDS: LACTATED RINGER'S 1,000 ML IV SCH (10:14)
[2021-02-02] MEDS: PANTOPRAZOLE 40 MG TAB PO SCH (10:15)
[2021-02-02] MEDS: DOCUSATE SOD 100 MG CAP PO SCH ×2 (10:15→21:24)
[2021-02-02] MEDS: ENOXAPARIN SOD 40 MG/0.4 ML SYRINGE SC SCH (10:15)
[2021-02-02] MEDS: SERTRALINE HCL 50 MG TAB PO SCH (10:15)
[2021-02-02 13:00] VITALS: BP 131/61
[2021-02-02] MEDS: ACETAMINOPHEN 325 MG TAB PO PRN (13:33)
[2021-02-02 16:34] VITALS: BP 92/57
[2021-02-02] MEDS: ATORVASTATIN 20 MG TAB PO SCH (21:24)
[2021-02-02 22:00] VITALS: BP 119/50
[2021-02-03 05:15] LABS: Hematocrit 35.3 % (36.0-46.0); Hemoglobin 12.2 g/dL (12.2-16.2)
[2021-02-03 05:18] VITALS: BP 109/54
[2021-02-03] MEDS: ACETAMINOPHEN 325 MG TAB PO PRN (05:52)
[2021-02-03 09:00] VITALS: BP 98/55
[2021-02-03] MEDS: ENOXAPARIN SOD 40 MG/0.4 ML SYRINGE SC SCH (09:21)
[2021-02-03] MEDS: SERTRALINE HCL 50 MG TAB PO SCH (09:21)
[2021-02-03] MEDS: DOCUSATE SOD 100 MG CAP PO SCH (09:21)
[2021-02-03] MEDS: PANTOPRAZOLE 40 MG TAB PO SCH (09:21)
[2021-02-03] MEDS: FATTY ACIDS PO SCH (09:22)
[2021-02-03] MEDS: OMEGA PO SCH (09:22)
[2021-02-03] MEDS: B COMPLEX VITAMINS PO SCH (09:22)
[2021-02-03 10:41] VITALS: BP 98/55
[2021-02-03] MEDS: OXYCODONE W/ ACETAMINOPHEN 5/325MG TABLET PO PRN (11:26)
[2021-02-03 13:26] VITALS: BP 120/56
== END 2021-02-03 15:59 | disposition home health service (06) | DRG 467 ==
LOC: SUR 07:41 → TELE 11:39 → TELE-WESTW 12:17
PROVIDERS: ADMIT Orthopaedic Surgery Adult Reconstructive Orthopaedic Surgery; ATTEND Internal Medicine
PROC: 0SPD0JZ Removal of Synthetic Substitute from Left Knee Joint, Open Approach (ICD-10-PCS; 2021-01-31)
PROC: 0SPD09Z Removal of Liner from Left Knee Joint, Open Approach (ICD-10-PCS; 2021-01-31)
PROC: 0SUU09Z Supplement Left Knee Joint, Femoral Surface with Liner, Open Approach (ICD-10-PCS; 2021-01-31)
PROC: 0QSF0ZZ Reposition Left Patella, Open Approach (ICD-10-PCS; 2021-01-31)
PROC: 0SRD0J9 Replacement of Left Knee Joint with Synthetic Substitute, Cemented, Open Approach (ICD-10-PCS; principal; 2021-01-31 08:47)
DX: T84.033A Mechanical loosening of internal left knee prosthetic joint, initial encounter (principal); Z68.41 Body mass index [BMI] 40.0-44.9, adult; M22.8X9 Other disorders of patella, unspecified knee; M65.9 Synovitis and tenosynovitis, unspecified; Z96.651 Presence of right artificial knee joint; I95.9 Hypotension, unspecified; E66.9 Obesity, unspecified; E78.5 Hyperlipidemia, unspecified; Y83.8 Other surgical procedures as the cause of abnormal reaction of the patient, or of later complication, without mention of misadventure at the time of the procedure; F32.A Depression, unspecified; Z20.822 Contact with and (suspected) exposure to COVID-19; F41.9 Anxiety disorder, unspecified; Z88.0 Allergy status to penicillin; Z88.6 Allergy status to analgesic agent; Y92.89 Other specified places as the place of occurrence of the external cause
CPT/HCPCS: 36415; 73562; 80053; 81001; 82962; 85014; 85018; 85025; 86850; 86900; 86901; 97110; 97116; 97163; 97530; C9113; G0378; J1100; J1885; J2250; J2405; J2704

== ENCOUNTER → 2021-09-19 | Outpatient (CLI) | payer OTHER ==
[~2021-09-19] MED LIST changes: +PERCOT PO
[2021-09-19 10:35] LABS: Basophils # (auto) 0 10 ^3/uL (0-0.2); Basophils % (auto) 0.5 % (0.0-2.0); Eosinophils # (auto) 0.1 10 ^3/uL (0-0.8); Eosinophils % (auto) 2.7 % (0.0-7.0); Hematocrit 42.5 % (36.0-46.0); Hemoglobin 14.1 g/dL (12.2-16.2); Lymphocytes # (auto) 1.2 10 ^3/uL (0.4-5.4); Lymphocytes % (auto) 25.4 % (10.0-50.0); Mean Corpuscular Hemoglobin 30.1 pg (28.0-32.0); Mean Corpuscular Hgb Conc. 33.2 g/dL (32.0-36.0); Mean Corpuscular Volume 90.8 fL (80.0-100.0); Monocytes # (auto) 0.2 10 ^3/uL (0-1.3); Monocytes % (auto) 4.8 % (0.0-12.0); Neutrophils # (auto) 3.3 10 ^3/uL (1.6-8.6); Neutrophils % (auto) 66.6 % (37.0-80.0); Nucleated Red Blood Cells % 0.1 %; Red Blood Cells 4.68 10^6/uL (4.0-5.20); Red Cell Distribution Width 13.9 % (11.8-14.3); White Blood Cell 4.9 10^3/uL (4.4-10.8)
[2021-09-19 11:27] LABS: CRP High Sensitivity 0.09 mg/dL (< 0.3); Calcium 9.2 mg/dL (8.5-10.1)
[2021-09-19 11:39] LABS: BUN/Creatinine Ratio 15.3; Bilirubin, Total 0.5 mg/dL (0.2-1.0); Potassium 4.1 mmol/L (3.5-5.1); Total Protein 7.7 g/dL (6.4-8.2)
== END | disposition home or self-care (01) ==
LOC: LAB 10:08
PROVIDERS: ATTEND Internal Medicine Rheumatology
DX: M05.79 Rheumatoid arthritis with rheumatoid factor of multiple sites without organ or systems involvement (principal); M45.9 Ankylosing spondylitis of unspecified sites in spine
CPT/HCPCS: 36415; 80053; 85025; 85652; 86141; 86200; 86431; 86705; 86812

== ENCOUNTER → 2022-01-20 | Outpatient (CLI) | payer OTHER ==
[2022-01-20 11:52] LABS: Basophils # (auto) 0 10 ^3/uL (0-0.2); Basophils % (auto) 0.4 % (0.0-2.0); Eosinophils # (auto) 0.1 10 ^3/uL (0-0.8); Eosinophils % (auto) 2.4 % (0.0-7.0); Hematocrit 42.6 % (36.0-46.0); Lymphocytes # (auto) 1.6 10 ^3/uL (0.4-5.4); Lymphocytes % (auto) 31.7 % (10.0-50.0); Mean Corpuscular Hemoglobin 29.4 pg (28.0-32.0); Mean Corpuscular Hgb Conc. 32.9 g/dL (32.0-36.0); Mean Corpuscular Volume 89.3 fL (80.0-100.0); Monocytes # (auto) 0.2 10 ^3/uL (0-1.3); Monocytes % (auto) 4.6 % (0.0-12.0); Neutrophils % (auto) 60.9 % (37.0-80.0); Red Blood Cells 4.77 10^6/uL (4.0-5.20); Red Cell Distribution Width 13.3 % (11.8-14.3)
[2022-01-20 11:54] LABS: Urine Bacteria NONE SEEN /hpf (None Seen); Urine Blood Negative /uL (Negative); Urine Hyaline Cast FEW /lpf (0 - 2); Urine Specific Gravity 1.019 (1.001-1.035); Urine WBC 2 /hpf (0 - 5)
[2022-01-20 12:29] LABS: Potassium 4.2 mmol/L (3.5-5.1)
[2022-01-20 12:41] LABS: BUN/Creatinine Ratio 28.3; Bilirubin, Total 0.8 mg/dL (0.2-1.0); Calcium 9.1 mg/dL (8.5-10.1); Total Protein 7.4 g/dL (6.4-8.2)
== END | disposition home or self-care (01) ==
LOC: LAB 08:55
PROVIDERS: ATTEND Student in an Organized Health Care Education/Training Program
DX: I10 Essential (primary) hypertension (principal); E55.9 Vitamin D deficiency, unspecified; R73.9 Hyperglycemia, unspecified
CPT/HCPCS: 36415; 80053; 80061; 81001; 82306; 83036; 84443; 85025

== ENCOUNTER → 2022-04-21 | Outpatient (CLI) | payer OTHER ==
[2022-04-21 13:09] LABS: Basophils # (auto) 0 10 ^3/uL (0-0.2); Basophils % (auto) 0.7 % (0.0-2.0); Eosinophils # (auto) 0.2 10 ^3/uL (0-0.8); Eosinophils % (auto) 3.4 % (0.0-7.0); Hematocrit 41.6 % (36.0-46.0); Hemoglobin 14.2 g/dL (12.2-16.2); Lymphocytes # (auto) 0.7 10 ^3/uL (0.4-5.4); Lymphocytes % (auto) 14.5 % (10.0-50.0); Mean Corpuscular Hemoglobin 31.6 pg (28.0-32.0); Mean Corpuscular Hgb Conc. 34.2 g/dL (32.0-36.0); Mean Corpuscular Volume 92.4 fL (80.0-100.0); Monocytes # (auto) 0.2 10 ^3/uL (0-1.3); Monocytes % (auto) 3.4 % (0.0-12.0); Neutrophils # (auto) 3.9 10 ^3/uL (1.6-8.6)
[2022-04-21 13:24] LABS: Urine Bacteria NONE SEEN /hpf (None Seen); Urine Blood Negative /uL (Negative); Urine Specific Gravity 1.014 (1.001-1.035); Urine WBC 7 /hpf (0 - 5)
[2022-04-21 14:52] LABS: Alanine Aminotransferase 30 U/L (13-56); Alkaline Phosphatase 100 U/L (45-117); Anion Gap 3 (5-15); Aspartate Aminotransferase 15 U/L (15-37); BUN/Creatinine Ratio 32.7; Bilirubin, Total 0.6 mg/dL (0.2-1.0); Blood Urea Nitrogen 17 mg/dL (7-18); Calcium 8.6 mg/dL (8.5-10.1); Carbon Dioxide 28 mmol/L (21-32); Chloride 107 mmol/L (98-107); GFR African American 149 mL/min; GFR Non-African American 124 mL/min; Glucose 101 mg/dL (74-106); Sodium 138 mmol/L (136-145)
[2022-04-21 14:53] LABS: Cholesterol 133 mg/dL (< 200); HDL Cholesterol 76 mg/dL (40-59); LDL Cholesterol 51 mg/dL (< 100); Total Protein 7.5 g/dL (6.4-8.2); Triglycerides 79 mg/dL (< 150)
== END | disposition home or self-care (01) ==
LOC: LAB 12:37
PROVIDERS: ATTEND Student in an Organized Health Care Education/Training Program
DX: E78.5 Hyperlipidemia, unspecified (principal); R73.9 Hyperglycemia, unspecified; R03.0 Elevated blood-pressure reading, without diagnosis of hypertension
CPT/HCPCS: 36415; 80053; 80061; 81001; 83036; 84443; 85025

== ENCOUNTER → 2022-07-27 | Outpatient (CLI) | payer OTHER ==
[~2022-07-27] MED LIST changes: -B-CO-15 PO; +B-COTAB19 PO; -HYDR12.56 PO; +HYDR12.59 PO; -SIMV-8 PO; +SIMV20TA20 PO
[2022-07-27 12:50] LABS: Basophils # (auto) 0 10 ^3/uL (0-0.2); Basophils % (auto) 0.6 % (0.0-2.0); Eosinophils # (auto) 0.2 10 ^3/uL (0-0.8); Eosinophils % (auto) 3.3 % (0.0-7.0); Hematocrit 41.5 % (36.0-46.0); Lymphocytes # (auto) 1.6 10 ^3/uL (0.4-5.4); Mean Corpuscular Hemoglobin 31.3 pg (28.0-32.0); Mean Corpuscular Hgb Conc. 33.8 g/dL (32.0-36.0); Mean Corpuscular Volume 92.6 fL (80.0-100.0); Monocytes # (auto) 0.5 10 ^3/uL (0-1.3); Monocytes % (auto) 6.7 % (0.0-12.0); Neutrophils # (auto) 4.8 10 ^3/uL (1.6-8.6); Neutrophils % (auto) 66.4 % (37.0-80.0); Red Blood Cells 4.48 10^6/uL (4.0-5.20); Red Cell Distribution Width 13.7 % (11.8-14.3); White Blood Cell 7.2 10^3/uL (4.4-10.8)
[2022-07-27 13:24] LABS: Albumin 4.1 g/dL (3.4-5.0); Calcium 8.7 mg/dL (8.5-10.1); Potassium 4.2 mmol/L (3.5-5.1)
[2022-07-27 13:27] LABS: BUN/Creatinine Ratio 28.8 (10.0-20.0); Bilirubin, Total 0.6 mg/dL (0.2-1.0); Total Protein 7.3 g/dL (6.4-8.2)
== END | disposition home or self-care (01) ==
LOC: LAB 12:27
PROVIDERS: ATTEND Internal Medicine Rheumatology
DX: M06.9 Rheumatoid arthritis, unspecified (principal)
CPT/HCPCS: 36415; 80053; 85025; 85652

== ENCOUNTER → 2022-08-21 | Outpatient (CLI) | payer OTHER ==
[2022-08-21 10:00] LABS: Urine Bacteria NONE SEEN /hpf (None Seen); Urine Blood Negative /uL (Negative); Urine Mucus FEW (None Seen); Urine Specific Gravity 1.025 (1.001-1.035); Urine WBC 4 /hpf (0 - 5)
[2022-08-21 10:36] LABS: Potassium 4.9 mmol/L (3.5-5.1)
[2022-08-21 10:55] LABS: BUN/Creatinine Ratio 32.8 (10.0-20.0); Calcium 8.9 mg/dL (8.5-10.1)
== END | disposition home or self-care (01) ==
LOC: LAB 09:26
PROVIDERS: ATTEND Student in an Organized Health Care Education/Training Program
DX: I10 Essential (primary) hypertension (principal); R73.9 Hyperglycemia, unspecified
CPT/HCPCS: 36415; 80048; 81001; 83036

== ENCOUNTER → 2022-11-20 | Outpatient (CLI) | payer OTHER ==
[2022-11-20 09:38] LABS: Basophils # (auto) 0 10 ^3/uL (0-0.2); Basophils % (auto) 0.5 % (0.0-2.0); Eosinophils # (auto) 0.2 10 ^3/uL (0-0.8); Eosinophils % (auto) 3.2 % (0.0-7.0); Hematocrit 41.9 % (36.0-46.0); Lymphocytes # (auto) 1.4 10 ^3/uL (0.4-5.4); Mean Corpuscular Hemoglobin 30.7 pg (28.0-32.0); Mean Corpuscular Hgb Conc. 33.4 g/dL (32.0-36.0); Mean Corpuscular Volume 92.1 fL (80.0-100.0); Monocytes # (auto) 0.3 10 ^3/uL (0-1.3); Neutrophils # (auto) 3.1 10 ^3/uL (1.6-8.6); Neutrophils % (auto) 62.3 % (37.0-80.0); Red Blood Cells 4.54 10^6/uL (4.0-5.20); Red Cell Distribution Width 14.8 % (11.8-14.3)
[2022-11-20 10:15] LABS: Albumin 4.5 g/dL (3.2-4.8); Alkaline Phosphatase 88 U/L (46-116); Anion Gap 8 (5-15); Aspartate Aminotransferase 18 U/L (13-40); BUN/Creatinine Ratio 22.7 (10.0-20.0); Bilirubin, Total 0.6 mg/dL (0.2-1.0); Blood Urea Nitrogen 15 mg/dL (9-23); Calcium 9.2 mg/dL (8.5-10.1); Carbon Dioxide 26 mmol/L (20-30); Chloride 107 mmol/L (98-107); Glucose 104 mg/dL (74-106); Potassium 4.2 mmol/L (3.5-5.1); Sodium 141 mmol/L (136-145)
[2022-11-20 10:16] LABS: Total Protein 7.1 g/dL (5.7-8.2)
[2022-11-20 10:23] LABS: Alanine Aminotransferase 18 U/L (7-40); Erythrocyte Sedimentation Rate 7 mm/hr (0-20)
== END | disposition home or self-care (01) ==
LOC: LAB 09:17
PROVIDERS: ATTEND Internal Medicine Rheumatology
DX: M06.9 Rheumatoid arthritis, unspecified (principal); Z79.899 Other long term (current) drug therapy
CPT/HCPCS: 36415; 80053; 85025; 85652

== ENCOUNTER → 2022-12-19 | Outpatient (CLI) | payer OTHER ==
[2022-12-19 09:12] LABS: Basophils # (auto) 0 10 ^3/uL (0-0.2); Basophils % (auto) 0.5 % (0.0-2.0); Eosinophils # (auto) 0.2 10 ^3/uL (0-0.8); Eosinophils % (auto) 3.3 % (0.0-7.0); Hematocrit 42.6 % (36.0-46.0); Hemoglobin 13.9 g/dL (12.2-16.2); Lymphocytes # (auto) 1.5 10 ^3/uL (0.4-5.4); Lymphocytes % (auto) 26.5 % (10.0-50.0); Mean Corpuscular Hemoglobin 29.9 pg (28.0-32.0); Mean Corpuscular Hgb Conc. 32.7 g/dL (32.0-36.0); Mean Corpuscular Volume 91.6 fL (80.0-100.0); Monocytes # (auto) 0.3 10 ^3/uL (0-1.3); Monocytes % (auto) 5.9 % (0.0-12.0); Neutrophils # (auto) 3.5 10 ^3/uL (1.6-8.6); Neutrophils % (auto) 63.8 % (37.0-80.0); Red Blood Cells 4.65 10^6/uL (4.0-5.20); Red Cell Distribution Width 14.5 % (11.8-14.3); White Blood Cell 5.6 10^3/uL (4.4-10.8)
[2022-12-19 09:17] LABS: Urine Bacteria NONE SEEN /hpf (None Seen); Urine Blood Negative /uL (Negative); Urine Clarity Clear (Clear); Urine Color Colorless (Yellow); Urine Protein, UAD Negative (Negative); Urine Specific Gravity 1.017 (1.001-1.035); Urine Urobilinogen Normal (Negative); Urine WBC 1 /hpf (0 - 5)
[2022-12-19 09:47] LABS: Alanine Aminotransferase 13 U/L (7-40); Albumin 4.7 g/dL (3.2-4.8); Alkaline Phosphatase 95 U/L (46-116); Anion Gap 7 (5-15); Aspartate Aminotransferase 13 U/L (13-40); BUN/Creatinine Ratio 26.2 (10.0-20.0); Bilirubin, Total 0.7 mg/dL (0.2-1.0); Blood Urea Nitrogen 17 mg/dL (9-23); Calcium 9.2 mg/dL (8.5-10.1); Carbon Dioxide 26 mmol/L (20-30); Chloride 106 mmol/L (98-107); Cholesterol 149 mg/dL (< 200); Glucose 106 mg/dL (74-106); HDL Cholesterol 65 mg/dL (40-59); LDL Cholesterol 68 mg/dL (< 100); Potassium 4.1 mmol/L (3.5-5.1); Sodium 139 mmol/L (136-145); Total Protein 6.9 g/dL (5.7-8.2); Triglycerides 97 mg/dL (< 150)
== END | disposition home or self-care (01) ==
LOC: LAB 08:41
PROVIDERS: ATTEND Student in an Organized Health Care Education/Training Program
DX: I10 Essential (primary) hypertension (principal); E78.5 Hyperlipidemia, unspecified; R73.9 Hyperglycemia, unspecified
CPT/HCPCS: 36415; 80053; 80061; 81001; 83036; 85025

== ENCOUNTER → 2023-04-16 | Outpatient (CLI) | payer OTHER ==
[2023-04-16 08:55] LABS: Basophils # (auto) 0 10 ^3/uL (0-0.2); Basophils % (auto) 0.5 % (0.0-2.0); Eosinophils # (auto) 0.2 10 ^3/uL (0-0.8); Eosinophils % (auto) 4.2 % (0.0-7.0); Hematocrit 42.3 % (36.0-46.0); Hemoglobin 14.1 g/dL (12.2-16.2); Lymphocytes # (auto) 1.6 10 ^3/uL (0.4-5.4); Lymphocytes % (auto) 34.1 % (10.0-50.0); Mean Corpuscular Hemoglobin 30.8 pg (28.0-32.0); Mean Corpuscular Hgb Conc. 33.4 g/dL (32.0-36.0); Mean Corpuscular Volume 92.2 fL (80.0-100.0); Monocytes # (auto) 0.3 10 ^3/uL (0-1.3); Monocytes % (auto) 6.8 % (0.0-12.0); Neutrophils # (auto) 2.5 10 ^3/uL (1.6-8.6); Neutrophils % (auto) 54.4 % (37.0-80.0); Red Blood Cells 4.59 10^6/uL (4.0-5.20); Red Cell Distribution Width 13.5 % (11.8-14.3); White Blood Cell 4.7 10^3/uL (4.4-10.8)
[2023-04-16 09:16] LABS: Alanine Aminotransferase 13 U/L (7-40); Albumin 4.5 g/dL (3.2-4.8); Alkaline Phosphatase 99 U/L (46-116); Anion Gap 6 (5-15); Aspartate Aminotransferase 14 U/L (13-40); BUN/Creatinine Ratio 17.2 (10.0-20.0); Blood Urea Nitrogen 11 mg/dL (9-23); Calcium 9.1 mg/dL (8.5-10.1); Carbon Dioxide 27 mmol/L (20-30); Chloride 107 mmol/L (98-107); Glucose 103 mg/dL (74-106); Sodium 140 mmol/L (136-145)
[2023-04-16 09:17] LABS: Bilirubin, Total 0.6 mg/dL (0.2-1.0); Total Protein 6.5 g/dL (5.7-8.2)
[2023-04-16 09:30] LABS: Erythrocyte Sedimentation Rate 7 mm/hr (0-20)
== END | disposition home or self-care (01) ==
LOC: LAB 08:13
PROVIDERS: ATTEND Internal Medicine Rheumatology
DX: M06.9 Rheumatoid arthritis, unspecified (principal)
CPT/HCPCS: 36415; 80053; 85025; 85652

== ENCOUNTER 2023-09-12 09:10 | Emergency (ER) | payer OTHER ==
[~2023-09-12] VITALS: Ht 152.4 cm; Wt 82.2 kg
[2023-09-12 10:48] VITALS: BP 123/57; PULSE 64; RESP 16; TEMP 98.1; O2SAT 96
[2023-09-12] MEDS: ACETAMINOPHEN 325 MG TAB PO ONE (11:18)
== END 2023-09-12 12:04 | disposition home or self-care (01) ==
LOC: ER 09:10
DX: S00.93XA Contusion of unspecified part of head, initial encounter (principal); I10 Essential (primary) hypertension; E78.5 Hyperlipidemia, unspecified; Z88.0 Allergy status to penicillin; Z88.5 Allergy status to narcotic agent; Z79.82 Long term (current) use of aspirin; Z79.899 Other long term (current) drug therapy; W19.XXXA Unspecified fall, initial encounter; Y93.89 Activity, other specified; Y92.89 Other specified places as the place of occurrence of the external cause; Y99.8 Other external cause status
CPT/HCPCS: 70450

== ENCOUNTER → 2023-11-26 | Outpatient (CLI) | payer OTHER ==
[2023-11-26 08:56] LABS: Urine Bacteria None Seen /hpf (None Seen)
[2023-11-26 09:05] LABS: Basophils # (auto) 0 10 ^3/uL (0-0.2); Basophils % (auto) 0.4 % (0.0-2.0); Eosinophils # (auto) 0.3 10 ^3/uL (0-0.8); Eosinophils % (auto) 4.8 % (0.0-7.0); Hematocrit 40.2 % (36.0-46.0); Hemoglobin 13.8 g/dL (12.2-16.2); Lymphocytes # (auto) 1.2 10 ^3/uL (0.4-5.4); Lymphocytes % (auto) 23.4 % (10.0-50.0); Mean Corpuscular Hemoglobin 31.4 pg (28.0-32.0); Mean Corpuscular Hgb Conc. 34.3 g/dL (32.0-36.0); Mean Corpuscular Volume 91.7 fL (80.0-100.0); Monocytes # (auto) 0.4 10 ^3/uL (0-1.3); Monocytes % (auto) 8.2 % (0.0-12.0); Neutrophils # (auto) 3.3 10 ^3/uL (1.6-8.6); Neutrophils % (auto) 63.2 % (37.0-80.0); Platelet Count (auto) 240 10^3/uL (140-450); Red Blood Cells 4.39 10^6/uL (4.0-5.20); Red Cell Distribution Width 14.3 % (11.8-14.3); White Blood Cell 5.2 10^3/uL (4.4-10.8)
[2023-11-26 09:33] LABS: Urine Blood Negative /uL (Negative); Urine Clarity Clear (Clear); Urine Color Yellow (Yellow); Urine Mucus FEW (None Seen); Urine Protein, UAD Negative (Negative); Urine Urobilinogen Normal (Negative); Urine WBC 1 /hpf (0 - 5); Urine pH 6.5 (5.0-9.0)
[2023-11-26 09:39] LABS: Erythrocyte Sedimentation Rate 19 mm/hr (0-20)
[2023-11-26 10:03] LABS: Alanine Aminotransferase 16 U/L (7-40); Albumin 4.6 g/dL (3.2-4.8); Alkaline Phosphatase 105 U/L (46-116); Anion Gap 6 (5-15); Aspartate Aminotransferase 13 U/L (13-40); BUN/Creatinine Ratio 17.6 (10.0-20.0); Blood Urea Nitrogen 12 mg/dL (9-23); Calcium 9.8 mg/dL (8.7-10.4); Carbon Dioxide 28 mmol/L (20-31); Chloride 107 mmol/L (98-107); Glucose 105 mg/dL (74-106); Potassium 4.3 mmol/L (3.5-5.1); Sodium 141 mmol/L (136-145)
[2023-11-26 10:04] LABS: Bilirubin, Total 0.6 mg/dL (0.2-1.0); Total Protein 7.1 g/dL (5.7-8.2)
== END | disposition home or self-care (01) ==
LOC: LAB 08:43
PROVIDERS: ATTEND Student in an Organized Health Care Education/Training Program
DX: I10 Essential (primary) hypertension (principal)
CPT/HCPCS: 36415; 80053; 81001; 83036; 84443; 85025; 85652

== ENCOUNTER → 2024-02-20 | Outpatient (CLI) | payer OTHER ==
[2024-02-20 11:44] LABS: Basophils # (auto) 0 10 ^3/uL (0-0.2); Basophils % (auto) 0.6 % (0.0-2.0); Eosinophils # (auto) 0.1 10 ^3/uL (0-0.8); Eosinophils % (auto) 2.2 % (0.0-7.0); Hematocrit 41.7 % (36.0-46.0); Hemoglobin 14.1 g/dL (12.2-16.2); Lymphocytes # (auto) 1.9 10 ^3/uL (0.4-5.4); Lymphocytes % (auto) 32.5 % (10.0-50.0); Mean Corpuscular Hemoglobin 30.7 pg (28.0-32.0); Mean Corpuscular Hgb Conc. 33.8 g/dL (32.0-36.0); Mean Corpuscular Volume 90.8 fL (80.0-100.0); Monocytes # (auto) 0.4 10 ^3/uL (0-1.3); Monocytes % (auto) 6.4 % (0.0-12.0); Neutrophils # (auto) 3.4 10 ^3/uL (1.6-8.6); Neutrophils % (auto) 58.3 % (37.0-80.0); Platelet Count (auto) 208 10^3/uL (140-450); Red Blood Cells 4.59 10^6/uL (4.0-5.20); Red Cell Distribution Width 13.8 % (11.8-14.3); White Blood Cell 5.8 10^3/uL (4.4-10.8)
[2024-02-20 11:58] LABS: Alanine Aminotransferase 12 U/L (7-40); Albumin 4.6 g/dL (3.2-4.8); Alkaline Phosphatase 112 U/L (46-116); Anion Gap 8 (5-15); Aspartate Aminotransferase 14 U/L (13-40); BUN/Creatinine Ratio 16.2 (10.0-20.0); Blood Urea Nitrogen 11 mg/dL (9-23); CRP High Sensitivity 0.21 mg/dL (<1.0); Calcium 9.6 mg/dL (8.7-10.4); Carbon Dioxide 26 mmol/L (20-31); Chloride 103 mmol/L (98-107); Sodium 137 mmol/L (136-145)
[2024-02-20 11:59] LABS: Bilirubin, Total 0.6 mg/dL (0.2-1.0); Total Protein 7.2 g/dL (5.7-8.2)
[2024-02-20 12:00] LABS: Glucose 110 mg/dL (74-106)
[2024-02-20 12:22] LABS: Erythrocyte Sedimentation Rate 9 mm/hr (0-20)
== END | disposition home or self-care (01) ==
LOC: LAB 11:21
PROVIDERS: ATTEND Internal Medicine Rheumatology
DX: M06.09 Rheumatoid arthritis without rheumatoid factor, multiple sites (principal); M06.4 Inflammatory polyarthropathy; L40.50 Arthropathic psoriasis, unspecified
CPT/HCPCS: 36415; 80053; 85025; 85652; 86141

== ENCOUNTER 2024-05-02 08:48 | Emergency (ER) | payer OTHER ==
[~2024-05-02] VITALS: Ht 154.9 cm; Wt 85.9 kg
--- NOTE | 2024-05-02 09:04 | ECG ---
[facility] Test Date: 2024-05-02 Test Time: 08:59:52 Pat Name: KAYLAN PHPIPS Department: ER Room: Gender: F Pharmacovigilance Specialist: MARGIE : 1950 Requested By: ELLEN WELCH Order Number: [id number] Reading MD: Ronny Aquino Measurements Intervals [place] Rate: 59 P: 35 NH: 186 QRS: -57 QRSD: 100 T: -28 QT: 455 QTc: 451 Interpretive Statements Sinus rhythm Left anterior fascicular block Probable anterior infarct, age indeterminate Electronically Signed On 05-03-2024 17:44:57 PDT by Ronny Aquino Please click the below link to view image of tracing.
--- NOTE | 2024-05-02 09:32 | ED.PDOC ---
Eye-HPI HPI Comments 73Y F with PMHx HTN, HLD, RA, and vertigo presents to ED for chief complaint dizziness x1week with headache and nausea. Pt describes dizziness as "room spinning". Pt states she has not had a headache during previous vertigo episodes. Pt denies sick contact. No other symptoms reported. Chief Complaint: Dizziness Time Seen by MD: 09:20 Primary Care Provider: GLENNA Reviewed Notes: Nurses Notes, Medications, Allergies Allergies: Coded Allergies: Morphine (Verified Allergy, Mild, HIVES, 08/02/20) Penicillins (Verified Allergy, Unknown, HIVES, 08/02/20) Home Meds Active Scripts Oxycodone W/ Acetaminophen (Percocet 5/325MG) 1 Tab Tb, 1 TAB PO DAILY PRN for 30 Days, #30 TAB 0 Refills Prov:KARLEY MACIEL MD 03/02/21 Reported Medications Hydrochlorothiazide (Hydrochlorothiazide) 12.5 Mg Cap, 12.5 MG PO, CAP 01/27/21 [place]-3 Fatty Acids ([place] 3 500 500 mg) 1 Cap Cap, 1 CAP PO BID, CAP 10/03/19 B-Complex Vitamins (Vitamin B Complex) Complex Tab, 1 TAB PO DAILY, TAB 10/03/19 Aspirin (Aspir-Low) 81 Mg Tab, 81 MG PO DAILY for 30 Days, MG 10/03/19 Alprazolam (Alprazolam) 0.5 Mg Tab, 1 TAB PO BID PRN for ANXIETY, #60 TAB 10/03/19 Sertraline HCl (Sertraline Hydrochloride) 100 Mg Tab, 100 MG PO DAILY, TAB 10/03/19 Simvastatin (Simvastatin) 20 Mg Tab, 20 MG PO DAILY for 30 Days 10/03/19 Citalopram Hydrobromide (Citalopram Hydrobromide) 20 Mg Tab, 20 MG PO DAILY for 30 Days, MG 10/03/19 Information Source: Patient Mode of Arrival: Wheelchair Timing: Weeks Duration: Intermittent Prehospital treatment: None Onset: Spontaneous Throat Exposed to: None History of: None Modifying factors: Nothing Associated signs and symptoms: Other Past Medical History PAST MEDICAL HISTORY: High Lipids, HTN Past Medical History (Other): RA, vertigo Surgical History: Denies all surgeries STRAIN TECHNICIAN History: Denies all STRAIN TECHNICIAN Hx Family History Family History: Reviewed,noncontributory to illness, Unknown Social History Smoker: Non-Smoker Alcohol: Denies ETOH Use Drugs: Denies Drug Use Lives In: Home Constitutional: denies: chills, diaphoresis, fatigue, fever, malaise, sweats, weakness, others EENTM: denies: blurred vision, double vision, ear bleeding, ear discharge, ear drainage, ear pain, ear ringing, eye pain, eye redness, hearing loss, mouth pain, mouth swelling, nasal discharge, nose bleeding, nose congestion, nose pain, photophobia, tearing, throat pain, throat swelling, voice changes, others Respiratory: denies: cough, hemoptysis, orthopnea, SOB at rest, shortness of breath, SOB with excertion, stridor, wheezing, others Cardiovascular: denies: chest pain, dizzy spells, diaphoresis, Dyspnea on exertion, edema, irregular heart beat, left arm pain, lightheadedness, palpitations, PND, syncope, others Gastrointestinal: reports: nausea; denies: abdomen distended, abdominal pain, blood streaked bowels, constipated, diarrhea, dysphagia, difficulty swallowing, hematemesis, melena, poor appetite, poor fluid intake, rectal bleeding, rectal pain, vomiting, others Genitourinary: denies: abnormal vagina bleeding, burning, dyspareunia, dysuria, flank pain, frequency, hematuria, incontinence, pain, , vagina discharge, urgency, others Neurological: reports: dizziness, headache; denies: fainting, left sided numbness, left sided weakness, numbness, paresthesia, pre-existing deficit, right sided numbness, right sided weakness, seizure, speech problems, tingling, tremors, weakness, others Musculoskeletal: denies: back pain, gout, joint pain, joint swelling, muscle pain, muscle stiffness, neck pain, others Integumetry: denies: bruises, change in color, change in hair/nails, dryness, laceration, lesions, lumps, rash, wounds, others Allergic/Immunocompromised: denies: Difficulty Healing, Frequent Infections, Hives, Itching, others Hematologic/Lymphatic: denies: anemia, blood clots, easy bleeding, easy bruising, swollen glands, others Endocrine: denies: excessive hunger, excessive sweating, excessive thirst, excessive urination, flushing, intolerance to cold, intolerance to heat, unexplained weight gain, unexplained weight loss, others Psychiatric: denies: anxiety, bipolar disorder, depression, hopeless, panic disorder, schizophrenia, sleepless, suicidal, others All Other Systems: Reviewed and Negative Physical Exam General Appearance: No Apparent Distress, Normal HEENT: Normal ENT Inspection, Pharynx Normal, TMs Normal Neck: Full Range of Motion, Non-Tender, Normal, Normal Inspection Respiratory: Chest Non-Tender, Lungs Clear, No Accessory Muscle Use, No Respira tory Distress, Normal Breath Sounds Cardiovascular: No Edema, No JVD, No Murmur, No Gallop, Normal Peripheral Pulses, Regular Rate/Rhythm Breast Exam: Deferred Gastrointestinal: No Organomegaly, Non Tender, No Pulsatile Mass, Normal Bowel Sounds, Soft Genitalia: Deferred Pelvic: Deferred Rectal: Deferred Extremities: No calf tenderness, Normal capillary refill, Normal inspection, Normal range of motion, Non-tender, No pedal edema Musculoskeletal : Apperance: Normal Neurologic: Alert, x ray technician II-XII nml as Tested, No Motor Deficits, Normal Affect, Normal Mood, No Sensory Deficits, Other (tracking with eyes produces dizziness sensation) Cerebellar Function: Normal Reflexes: Normal Skin: Dry, Normal Color, Warm Lymphatic: No Adenopathy Was a procedure done? Was a procedure done?: No EENT DIFF Eye: N/A Nose: N/A Mouth: N/A Sore Throat: N/A Other Differential Diagnosis central vertigo, BPV, migraines, brain mass, tia, cva, intracranial bleed, arrhythmias, electrolyte disorders, dehydration, hyperglycemia, hypoglycemia, labyrinthitis, liseth's disease X-Ray, Labs, Meds, VS Vital Signs Date Time Temp Pulse Resp B/P (MAP) Pulse Ox O2 Delivery O2 Flow Rate FiO2 05/02/24 09:45 97.7 59 16 111/52 (71) 95 97.7 05/02/24 09:45 59 17 95 Room Air 05/02/24 09:44 98.1 64 18 126/62 (83) 98 98.1 05/02/24 09:44 64 18 98 Room Air* 0 21 05/02/24 08:59 59 05/02/24 08:58 97.9 60 18 123/59 (80) 97 97.9 Lab Test 05/02/24 09:49 3/21/25 08:55 Range/Units White Blood Count 3.9 L 4.4-10.8 10^3/uL Red Blood Count 4.44 4.0-5.20 10^6/uL Hemoglobin 13.7 12.2-16.2 g/dL Hematocrit 40.8 36.0-46.0 % Mean Corpuscular Volume 91.8 80.0-100.0 fL Mean Corpuscular Hemoglobin 30.8 28.0-32.0 pg Mean Corpuscular Hemoglobin Concent 33.6 32.0-36.0 g/dL Red Cell Distribution Width 14.3 11.8-14.3 % Platelet Count 186 140-450 10^3/uL Mean Platelet Volume 8.0 6.9-10.8 fL Neutrophils (%) (Auto) 59.0 37.0-80.0 % Lymphocytes (%) (Auto) 30.8 10.0-50.0 % Monocytes (%) (Auto) 6.2 0.0-12.0 % Eosinophils (%) (Auto) 3.5 0.0-7.0 % Basophils (%) (Auto) 0.5 0.0-2.0 % Neutrophils # (Auto) 2.3 1.6-8.6 10 ^3/uL Lymphocytes # (Auto) 1.2 0.4-5.4 10 ^3/uL Monocytes # (Auto) 0.2 0-1.3 10 ^3/uL Eosinophils # (Auto) 0.1 0-0.8 10 ^3/uL Basophils # (Auto) 0 0-0.2 10 ^3/uL Nucleated Red Blood Cells 0.1 % Sodium Level 141 136-145 mmol/L Potassium Level 4.2 3.5-5.1 mmol/L Chloride Level 108 H 98-107 mmol/L Carbon Dioxide Level 26 20-31 mmol/L Anion Gap 7 5-15 Blood Urea Nitrogen 25 H 9-23 mg/dL Creatinine 0.65 0.550-1.02 mg/dL Glomerular Filtration Rate Calc 93 >90 mL/min BUN/Creatinine Ratio 38.5 H 10.0-20.0 Serum Glucose 106 74-106 mg/dL Calcium Level 9.6 8.7-10.4 mg/dL Troponin I High Sensitivity < 3 L </=34 ng/L POC Glucose 101 70-106 mg/dl Current Medications Medications (Trade) Dose Ordered Sig/Diego Route Start Time Stop Time Status Last Admin Ondansetron HCl (Zofran Po) 4 mg ONCE ONCE PO 05/02/24 09:30 05/02/24 09:31 DC 05/02/24 09:45 Alprazolam (Xanax Tablet) 0.25 mg ONCE ONCE PO 05/02/24 09:30 05/02/24 09:31 DC 05/02/24 09:44 Meclizine HCl (Antivert Tablet) 25 mg ONCE ONCE PO 05/02/24 09:30 05/02/24 09:31 DC 05/02/24 09:44 [place] [address] Ph: [phone] DIAGNOSTIC IMAGING Diagnostic Imaging Report : [id number] Signed PATIENT: KAYLAN PHIPPS MACCT: [id number] UNIT: [id number] : 1950 LOC: ER ROOM / BED: / AGE / SEX: 73 / F ADM STATUS: REG ER SERVICE 2 ORDERING PHYSICIAN: ELLEN WELCH MD PROCEDURE(s): CXRP - CHEST PORTABLE REASON: vertigo ORDER NUMBER(s): [id number], ACCESSION NUMBER(s): [id number] CHEST RADIOGRAPH Indication: vertigo Technique: Single frontal view of the chest was obtained COMPARISON: None FINDINGS: Lines and Tubes: None Lungs: Clear Pleura: No effusion. No pneumothorax. Cardiomediastinal contours: Unremarkable Bones: Unremarkable IMPRESSION: No acute disease. ATED BY: DEL URBINA MD DICTATED DATE/TIME: 05/02/24942 SIGNED BY: DEL URBINA MD SIGNED DATE/TIME: 05/02/24942 CC: [address] [address] Ph: [phone] DIAGNOSTIC IMAGING Diagnostic Imaging Report : [id number] Signed PATIENT: KAYLAN PHIPPS MACCT: [id number] UNIT: [id number] : 1950 LOC: ER ROOM / BED: / AGE / SEX: 73 / F ADM STATUS: REG ER SERVICE 0923 ORDERING PHYSICIAN: ELLEN WELCH MD PROCEDURE(s): HWOCT - HEAD WITHOUT CONTRAST REASON: vertigo, headache ORDER NUMBER(s): [id number], ACCESSION NUMBER(s): [id number] EXAM: CT HEAD WITHOUT CONTRAST INDICATION: vertigo, headache TECHNIQUE: CT of the head without intravenous contrast. Coronal and sagittal reformatted images are submitted. Radiation Dose : 1. Head: CT Dose: CTDI volume is 57 mGy. Dose-length product is 1000.2 mGy*cm The dose indicators for CT are the volume Computed Tomography (CT) Dose Index (CTDIvol) and the Dose Length Product (DLP), and are measured in units of mGy and mGy-cm, respectively. These indicators are not patient dose, but values generated from the CT scanner acquisition factors. The report includes radiation exposure data for exposures received during this examination. All CT scans at this medical facility are performed using dose modulation techniques as appropriate to a performed exam including the following: Automated exposure control was utilized; adjustment of the MA and/or KV according to patient size; and use of iterative reconstruction technique. COMPARISON: CT HEAD WITHOUT CONTRAST on DOS: 09/12/23. FINDINGS: There is no evidence of acute intracranial hemorrhage, extra-axial collection, mass effect, midline shift, herniation or hydrocephalus. There are periventricular and subcortical hypodensities, nonspecific, but likely reflecting sequelae of chronic microvascular ischemic changes. The ventricles, sulci and cisterns are age appropriate. The fletcher-white differentiation is intact. The visualized paranasal sinuses and mastoid air cells are clear. No depressed calvarial fracture. The surrounding soft tissues are unremarkable. IMPRESSION: 1. No evidence of acute intracranial abnormality. ATED BY: JAELYN BHATIA MD DICTATED DATE/TIME: 05/02/24 1000 SIGNED BY: JAELYN BHATIA MD SIGNED DATE/TIME: 05/02/24 1000 CC: Time of 1ST Reevaluation: 09:50 Reevaluation 1ST: Unchanged Time of 2ND Reevaluation: 10:47 Reevaluation 2ND: Resolved Patient Education/Counseling: Diagnosis, Treatment, Prognosis, Need For Follow Up Family Education/Counseling: No Family Present Additional Information Previous visit documents reviewed: [facility] discharge 02/03/2021 and discharge 08/06/2020 The following tests were ordered, and results were reviewed by me: head CT WO contrast, CBC, BMP, Troponin, CXR Additional Information was gathered from interviewing the following independent historians: None I reviewed and agreed with the following test results read by other providers: Head CT WO contrast, CXR I discussed treatment and results with medical personnel and: Patient pt's symptoms resolved with medications and head ct and labs ekg are unremarkable. pt is stable for discharge with BPV Departure 1 Departure Time of Disposition: 10:49 Impression: Primary Impression: BPV (benign positional vertigo) Disposition: HOME / SELF CARE / HOMELESS Condition: Good e-Prescriptions Ondansetron Odt 4MG Tab (ZOFRAN PO) 4 Mg Tb 4 MG PO Q4HP PRN for 3 Days, #15 TAB ODT TAB-DISSOLVE IN MOUTH, THEN SWALLOW Prov: ELLEN WELCH MD 05/02/24 Alprazolam (Xanax) 0.25 Mg Tb 1 TAB PO Q8HP PRN for 3 Days, #9 TAB Prov: ELLEN WELCH MD 05/02/24 Meclizine HCl (Meclizine 25) 25 Mg Tab 25 MG PO Q4HP PRN for 3 Days, #15 TAB Prov: ELLEN WELCH MD 05/02/24 Discharged With: Self Critical Care Note Critical Care Time?: Yes Critical care comment: Due to concerns for patients condition deteriorating, the care required my highest level of attention and readiness to intervene. I assessed the patient, reviewed the medical records, ordered the appropriate tests and treatments, then reassessed for results and responsiveness. I communicated with medical personnel and consultants and formulated a plan of care. Total critical care time excludes any procedures Stability Stability form required: No Heart Score Heart Score: Heart Score Response (Comments) Value History N/A 0 EKG N/A 0 Age N/A 0 Risk Factors N/A 0 Troponin N/A 0 Total 0 I personally scribed for ELLEN WELCH MD ([email or web address]) on 05/02/24 at 09:32. Electronically submitted by Neema Noel ([email or web address]). I personally scribed for ELLEN WELCH MD ([email or web address]) on 05/02/24 at 09:56. Electronically submitted by Neema Noel ([facility]). I personally scribed for ELLEN WELCH MD ([email or web address]) on 05/02/24 at 10:04. Electronically submitted by Neema Noel ([facility]). ELLEN WELCH MD May 02, 2024 09:32
[2024-05-02 09:44] VITALS: PULSE 64; RESP 18; O2SAT 98
[2024-05-02] MEDS: MECLIZINE HCL 25 MG TAB PO ONE (09:44)
[2024-05-02] MEDS: ALPRAZolam 0.25 MG TAB PO ONE (09:44)
[2024-05-02] MEDS: ONDANSETRON ODT 4 MG TAB PO ONE (09:45)
--- NOTE | 2024-05-02 09:45 | DVH ---
CHEST RADIOGRAPH Indication: vertigo Technique: Single frontal view of the chest was obtained COMPARISON: None FINDINGS: Lines and Tubes: None Lungs: Clear Pleura: No effusion. No pneumothorax. Cardiomediastinal contours: Unremarkable Bones: Unremarkable IMPRESSION: No acute disease.
[2024-05-02 10:00] LABS: Basophils # (auto) 0 10 ^3/uL (0-0.2); Basophils % (auto) 0.5 % (0.0-2.0); Eosinophils # (auto) 0.1 10 ^3/uL (0-0.8); Eosinophils % (auto) 3.5 % (0.0-7.0); Hematocrit 40.8 % (36.0-46.0); Hemoglobin 13.7 g/dL (12.2-16.2); Lymphocytes # (auto) 1.2 10 ^3/uL (0.4-5.4); Lymphocytes % (auto) 30.8 % (10.0-50.0); Mean Corpuscular Hemoglobin 30.8 pg (28.0-32.0); Mean Corpuscular Hgb Conc. 33.6 g/dL (32.0-36.0); Mean Corpuscular Volume 91.8 fL (80.0-100.0); Monocytes # (auto) 0.2 10 ^3/uL (0-1.3); Monocytes % (auto) 6.2 % (0.0-12.0); Neutrophils # (auto) 2.3 10 ^3/uL (1.6-8.6); Nucleated Red Blood Cells % 0.1 %; Platelet Count (auto) 186 10^3/uL (140-450); Red Blood Cells 4.44 10^6/uL (4.0-5.20); Red Cell Distribution Width 14.3 % (11.8-14.3); White Blood Cell 3.9 10^3/uL (4.4-10.8)
--- NOTE | 2024-05-02 10:02 | DVH ---
EXAM: CT HEAD WITHOUT CONTRAST INDICATION: vertigo, headache TECHNIQUE: CT of the head without intravenous contrast. Coronal and sagittal reformatted images are s ubmitted. Radiation Dose : 1. Head: CT Dose: CTDI volume is 57 mGy. Dose-length product is 1000.2 mGy*cm The dose indicators for CT are the volume Computed Tomography (CT) Dose Index (CTDIvol) and the Dose Length Product (DLP), and are measured in units of mGy and mGy-cm, respectively. These indicators are not patient dose, but values generated from the CT scanner acquisition factors. The report includes radiation exposure data for exposures received during this examination. All CT scans at this medical facility are performed using dose modulation techniques as appropriate to a performed exam including the following: Automated exposure control was utilized; adjustment of the MA and/or KV according to patient size; and use of iterative reconstruction technique. COMPARISON: CT HEAD WITHOUT CONTRAST on DOS: 09/12/23. FINDINGS: There is no evidence of acute intracranial hemorrhage, extra-axial collection, mass effect, midline s hift, herniation or hydrocephalus. There are periventricular and subcortical hypodensities, nonspecific, but likely reflecting sequelae of chronic microvascular ischemic changes. The ventricles, sulci and cisterns are age appropriate. The fletcher-white differentiation is intact. The visualized paranasal sinuses and mastoid air cells are clear. No depressed calvarial fracture. The surrounding soft tissues are unremarkable. IMPRESSION: 1. No evidence of acute intracranial abnormality.
[2024-05-02 10:04] LABS: Potassium 4.2 mmol/L (3.5-5.1); Sodium 141 mmol/L (136-145)
[2024-05-02 10:05] LABS: Carbon Dioxide 26 mmol/L (20-31)
[2024-05-02 10:06] LABS: Calcium 9.6 mg/dL (8.7-10.4)
[2024-05-02 10:07] LABS: Chloride 108 mmol/L (98-107)
[2024-05-02 10:08] LABS: Anion Gap 7 (5-15)
[2024-05-02 10:11] LABS: Blood Urea Nitrogen 25 mg/dL (9-23); Glucose 106 mg/dL (74-106)
[2024-05-02 10:12] LABS: BUN/Creatinine Ratio 38.5 (10.0-20.0)
[2024-05-02] MEDS ORDERED: ALPR0.25 PO (10:50)
[2024-05-02] MEDS ORDERED: ZOFR4T PO (10:50)
[2024-05-02] MEDS ORDERED: MECL1TAB42 PO (10:50)
[2024-05-02 10:56] VITALS: BP 117/69; PULSE 63; RESP 16; TEMP 97.8; O2SAT 95
== END 2024-05-02 10:57 | disposition home or self-care (01) ==
LOC: ER 08:48
DX: H81.10 Benign paroxysmal vertigo, unspecified ear (principal); I10 Essential (primary) hypertension; E78.5 Hyperlipidemia, unspecified; Z79.82 Long term (current) use of aspirin; Z79.899 Other long term (current) drug therapy; Z88.0 Allergy status to penicillin; Z88.5 Allergy status to narcotic agent
CPT/HCPCS: 36415; 70450; 71045; 80048; 82947; 84484; 85025; 93005; 99285; J8597; Q0162; 82962

== ENCOUNTER → 2024-05-22 | Outpatient (CLI) | payer OTHER ==
[~2024-05-22] MED LIST changes: +ALPR0.25 PO; +MECL1TAB42 PO; +ZOFR4T PO
[2024-05-22 08:15] LABS: Urine Bacteria None Seen /hpf (None Seen)
[2024-05-22 08:41] LABS: Basophils # (auto) 0 10 ^3/uL (0-0.2); Basophils % (auto) 0.4 % (0.0-2.0); Eosinophils # (auto) 0.2 10 ^3/uL (0-0.8); Eosinophils % (auto) 3.2 % (0.0-7.0); Hematocrit 38.9 % (36.0-46.0); Hemoglobin 13.4 g/dL (12.2-16.2); Lymphocytes # (auto) 1.4 10 ^3/uL (0.4-5.4); Lymphocytes % (auto) 28.9 % (10.0-50.0); Mean Corpuscular Hemoglobin 31.3 pg (28.0-32.0); Mean Corpuscular Hgb Conc. 34.4 g/dL (32.0-36.0); Monocytes # (auto) 0.3 10 ^3/uL (0-1.3); Monocytes % (auto) 6.4 % (0.0-12.0); Neutrophils # (auto) 2.9 10 ^3/uL (1.6-8.6); Neutrophils % (auto) 61.1 % (37.0-80.0); Platelet Count (auto) 186 10^3/uL (140-450); Red Blood Cells 4.28 10^6/uL (4.0-5.20); Red Cell Distribution Width 14.2 % (11.8-14.3); White Blood Cell 4.8 10^3/uL (4.4-10.8)
[2024-05-22 08:57] LABS: Urine Blood Negative /uL (Negative); Urine Clarity Clear (Clear); Urine Color Yellow (Yellow); Urine Mucus FEW (None Seen); Urine Protein, UAD TRACE (Negative); Urine Specific Gravity 1.028 (1.001-1.035); Urine Squamous Epithelial Cell FEW /hpf (<5); Urine Urobilinogen 3 mg/dL (Negative); Urine WBC 25 /HPF (0-5); Urine pH 6.5 (5.0-9.0)
[2024-05-22 10:39] LABS: Alanine Aminotransferase 15 U/L (7-40); Albumin 4.6 g/dL (3.2-4.8); Alkaline Phosphatase 92 U/L (46-116); Anion Gap 9 (5-15); BUN/Creatinine Ratio 37.7 (10.0-20.0); Calcium 9.6 mg/dL (8.7-10.4); Carbon Dioxide 24 mmol/L (20-31); Potassium 3.8 mmol/L (3.5-5.1); Sodium 140 mmol/L (136-145); Total Protein 6.9 g/dL (5.7-8.2)
[2024-05-22 10:40] LABS: Bilirubin, Total 0.7 mg/dL (0.2-1.0)
[2024-05-22 10:43] LABS: Aspartate Aminotransferase 13 U/L (13-40); Blood Urea Nitrogen 23 mg/dL (9-23); Chloride 107 mmol/L (98-107); Glucose 112 mg/dL (74-106)
[2024-05-22 16:47] LABS: Triglycerides 77 mg/dL (< 150)
[2024-05-22 16:48] LABS: LDL Cholesterol 69 mg/dL (< 100)
[2024-05-22 16:49] LABS: Cholesterol 156 mg/dL (< 200)
[2024-05-22 16:57] LABS: HDL Cholesterol 69 mg/dL (40-59)
== END | disposition home or self-care (01) ==
LOC: LAB 08:04
PROVIDERS: ATTEND Student in an Organized Health Care Education/Training Program
DX: I10 Essential (primary) hypertension (principal); R73.9 Hyperglycemia, unspecified; E55.9 Vitamin D deficiency, unspecified
CPT/HCPCS: 36415; 80053; 80061; 81001; 82306; 83036; 84443; 85025

== ENCOUNTER → 2024-06-17 | Outpatient (CLI) | payer OTHER ==
[2024-06-17 15:36] LABS: Basophils # (auto) 0 10 ^3/uL (0-0.2); Basophils % (auto) 0.5 % (0.0-2.0); Eosinophils # (auto) 0.1 10 ^3/uL (0-0.8); Hematocrit 39.8 % (36.0-46.0); Hemoglobin 13.7 g/dL (12.2-16.2); Lymphocytes # (auto) 1.6 10 ^3/uL (0.4-5.4); Lymphocytes % (auto) 24.2 % (10.0-50.0); Mean Corpuscular Hemoglobin 31.2 pg (28.0-32.0); Mean Corpuscular Hgb Conc. 34.4 g/dL (32.0-36.0); Mean Corpuscular Volume 90.7 fL (80.0-100.0); Monocytes # (auto) 0.3 10 ^3/uL (0-1.3); Monocytes % (auto) 4.2 % (0.0-12.0); Neutrophils # (auto) 4.6 10 ^3/uL (1.6-8.6); Neutrophils % (auto) 69.1 % (37.0-80.0); Platelet Count (auto) 212 10^3/uL (140-450); Red Blood Cells 4.39 10^6/uL (4.0-5.20); Red Cell Distribution Width 14.6 % (11.8-14.3); White Blood Cell 6.6 10^3/uL (4.4-10.8)
[2024-06-17 15:52] LABS: Alkaline Phosphatase 100 U/L (46-116)
[2024-06-17 15:53] LABS: Alanine Aminotransferase 18 U/L (7-40); Albumin 4.6 g/dL (3.2-4.8); Anion Gap 7 (5-15); Bilirubin, Total 0.4 mg/dL (0.2-1.0); Blood Urea Nitrogen 17 mg/dL (9-23); CRP High Sensitivity 0.22 mg/dL (<1.0); Calcium 9.4 mg/dL (8.7-10.4); Carbon Dioxide 28 mmol/L (20-31); Chloride 106 mmol/L (98-107); Potassium 3.7 mmol/L (3.5-5.1); Sodium 141 mmol/L (136-145); Total Protein 6.9 g/dL (5.7-8.2)
[2024-06-17 15:56] LABS: Aspartate Aminotransferase 12 U/L (13-40); Glucose 110 mg/dL (74-106)
[2024-06-17 16:14] LABS: Erythrocyte Sedimentation Rate 8 mm/hr (0-20)
== END | disposition home or self-care (01) ==
LOC: LAB 15:22
PROVIDERS: ATTEND Internal Medicine Rheumatology
DX: M06.09 Rheumatoid arthritis without rheumatoid factor, multiple sites (principal); M06.4 Inflammatory polyarthropathy; L40.50 Arthropathic psoriasis, unspecified
CPT/HCPCS: 36415; 80053; 85025; 85652; 86141

== ENCOUNTER 2024-10-20 14:58 | Outpatient (CLI) | payer OTHER ==
[2024-10-20 15:13] LABS: Hematocrit 39.4 % (36.0-46.0); Hemoglobin 13.8 g/dL (12.2-16.2); Mean Corpuscular Hemoglobin 31.9 pg (28.0-32.0); Mean Corpuscular Volume 90.9 fL (80.0-100.0); Nucleated Red Blood Cells % 0.0 %
[2024-10-20 16:27] LABS: Alanine Aminotransferase 17 U/L (7-40); Albumin 4.6 g/dL (3.2-4.8); Alkaline Phosphatase 107 U/L (46-116); Anion Gap 9 (5-15); BUN/Creatinine Ratio 21.0 (10.0-20.0); Bilirubin, Total 0.6 mg/dL (0.2-1.0); Blood Urea Nitrogen 13 mg/dL (9-23); Calcium 9.2 mg/dL (8.7-10.4); Carbon Dioxide 28 mmol/L (20-31); Chloride 105 mmol/L (98-107); Potassium 4.1 mmol/L (3.5-5.1); Sodium 142 mmol/L (136-145); Total Protein 7.2 g/dL (5.7-8.2)
[2024-10-20 16:33] LABS: Glucose 109 mg/dL (74-106)
== END 2024-10-20 17:00 | disposition home or self-care (01) ==
LOC: LAB 14:58
PROVIDERS: ATTEND Internal Medicine Rheumatology
DX: E55.9 Vitamin D deficiency, unspecified (principal); M06.09 Rheumatoid arthritis without rheumatoid factor, multiple sites; M06.9 Rheumatoid arthritis, unspecified; Z79.899 Other long term (current) drug therapy
CPT/HCPCS: 36415; 80053; 82306; 85025; 85652; 86141

== ENCOUNTER → 2024-12-12 | Outpatient (CLI) | payer OTHER ==
[2024-12-12 07:36] LABS: Hematocrit 38.8 % (36.0-46.0); Hemoglobin 13.3 g/dL (12.2-16.2); Mean Corpuscular Hemoglobin 31.4 pg (28.0-32.0); Mean Corpuscular Volume 91.6 fL (80.0-100.0); Nucleated Red Blood Cells % 0.1 %
[2024-12-12 08:09] LABS: Urine Budding Yeast OCCASIONAL /hpf (None Seen); Urine Protein, UAD TRACE (Negative)
[2024-12-12 08:23] LABS: Alanine Aminotransferase 19 U/L (7-40); Albumin 4.6 g/dL (3.2-4.8); Alkaline Phosphatase 106 U/L (46-116); Anion Gap 7 (5-15); BUN/Creatinine Ratio 23.6 (10.0-20.0); Blood Urea Nitrogen 17 mg/dL (9-23); Calcium 8.9 mg/dL (8.7-10.4); Carbon Dioxide 29 mmol/L (20-31); Chloride 105 mmol/L (98-107); Potassium 4.4 mmol/L (3.5-5.1); Sodium 141 mmol/L (136-145); Total Protein 7.1 g/dL (5.7-8.2); Triglycerides 96 mg/dL (< 150)
[2024-12-12 08:24] LABS: Bilirubin, Total 0.7 mg/dL (0.2-1.0); Cholesterol 149 mg/dL (< 200)
[2024-12-12 08:25] LABS: Glucose 109 mg/dL (74-106); HDL Cholesterol 67 mg/dL (40-59)
== END | disposition home or self-care (01) ==
LOC: LAB 07:00
PROVIDERS: ATTEND Student in an Organized Health Care Education/Training Program
DX: I10 Essential (primary) hypertension (principal); E78.5 Hyperlipidemia, unspecified; E55.9 Vitamin D deficiency, unspecified; R73.9 Hyperglycemia, unspecified
CPT/HCPCS: 36415; 80053; 80061; 81001; 82306; 83036; 84443; 85025